=== PATIENT | female | born 1955 | race Caucasian/White ===

== ENCOUNTER 2019-08-01 10:06 | Outpatient (CLI) | payer MEDICARE, SELFPAY ==
--- NOTE | ~2019-08-01 | DEXA_ITS ---
BMD(1) Young-Adult(2) Age-Matched(3) Region (g/cm2) T-score Z-score WHO Classification L1 0.935 -1.7 0.0 Osteopenia L2 1.006 -1.7 0.0 Osteopenia L3 0.991 -1.8 -0.1 Osteopenia L4 0.983 -1.8 -0.1 Osteopenia L1-L4 0.980 -1.7 0.0 Osteopenia Trend: L1-L4 Change vs Change vs Measured Age BMD(1) Baseline Previous Date (years) (g/cm2) (%) (%) 08/01/2019 [age] 0.980 baseline - 1 - Statistically 68% of repeat scans fall within 1SD (+- 0.010 g/cm2 for AP Spine L1-L4) 2 - [place] (Combined NHANES (ages 20-30) / [employer] (ages 20-40)) AP Spine Reference Population (v112) 3 - Matched for Age, Weight (females 25-100 kg), Ethnic 11 - World Health Organization - Definition of Osteoporosis and Osteopenia for Women: Normal = T-score at or above -1.0 SD; Osteopenia = T-score between -1.0 and -2.5 SD; Osteoporosis = T-score at or below -2.5 SD; (WHO definitions only apply when a young healthy Women reference database is used to determine T-scores.) Printed: 08/01/2019 10:40:46 AM (13.60)76:3.00:50.00:12.0 0.00:9.36 0.60x1.05 19.2:%Fat=33.4% 0.00:0.00 0.00:0.00 Filename: [id number] Scan Mode: Standard;OneScan 37.0 [employer] [id number] BMD(1) Young-Adult(2,7) Age-Matched(3) Region (g/cm2) T-score Z-score WHO Classification Neck Left 0.840 -1.4 0.1 Osteopenia Right 0.799 -1.7 -0.2 Osteopenia Mean 0.819 -1.6 0.0 Osteopenia Difference 0.041 0.3 0.3 - Total Left 0.879 -1.0 0.3 Normal Right 0.790 -1.7 -0.4 Osteopenia Mean 0.834 -1.4 -0.1 Osteopenia Difference 0.089 0.7 0.7 - Hip Vest Length Comparison (mm) (Right = 95.1 mm) (Mean = 104.1 mm) (Left = 97.0 mm) Trend: Total Mean Change vs Change vs Measured Age BMD(1) Baseline Previous Date (years) (g/cm2) (%) (%) 08/01/2019 [age] 0.834 baseline - 1 - Statistically 68% of repeat scans fall within 1SD (+- 0.010 g/cm2 for DualFemur Total) 2 - [place] (Combined NHANES (ages 20-30) / [employer] (ages 20-40)) Femur Reference Population (v112) 3 - Matched for Age, Weight (females 25-100 kg), Ethnic 7 - DualFemur Total T-score difference is 0.7. Asymmetry is Mild. 11 - World Health Organization - Definition of Osteoporosis and Osteopenia for Women: Normal = T-score at or above -1.0 SD; Osteopenia = T-score between -1.0 and -2.5 SD; Osteoporosis = T-score at or below -2.5 SD; (WHO definitions only apply when a young healthy Women reference database is used to determine T-scores.) Printed: 08/01/2019 10:40:46 AM (13.60); Filename: [id number]; Right Femur; 16.6:%Fat=31.8%; Neck Angle (deg)= 65; Scan Mode: Standard 37.0 uGy; Left Femur; 16.2:%Fat=31.7%; Neck Angle (deg)= 72; Scan Mode: Standard 37.0 uGy [employer] [id number] Dear Ramila Rodriguez, Your patient Marva Jimenez completed a BMD test on 08/01/2019 using the TidalScale DXA System (analysis version: 13.60) manufactured by [employer]. The following summarizes the results of our evaluation. PATIENT BIOGRAPHICAL: Name: Marva Jimenez Date: 1955 Height: 63.0 in. Gender: Female
== END 2019-08-01 10:07 | disposition home or self-care (01) ==
LOC: CHSIMG 10:09
PROVIDERS: PCP Internal Medicine; Visit Provider Internal Medicine
DX: M81.0 Age-related osteoporosis without current pathological fracture (principal)
CPT/HCPCS: 77080

== ENCOUNTER 2019-09-18 08:52 | Outpatient (CLI) | payer MEDICARE, SELFPAY ==
[2019-09-18] MEDS: ZOLEDRONIC ACID 5 MG/100 ML 100 ML 400 MG IVPB (09:22)
--- NOTE | 2019-09-18 09:52 | PC.NURSE ---
Patient here for Reclast infusion. Instructed on medication and handout given. No concerns voiced. Reclast infusion administered. Patient tolerated well. Safe exit of hospital.
== END 2019-09-18 08:53 | disposition home or self-care (01) ==
LOC: CHSTREATRM 08:55
PROVIDERS: PCP Internal Medicine; Visit Provider Internal Medicine
DX: M81.0 Age-related osteoporosis without current pathological fracture (principal)
CPT/HCPCS: 96365; J3489

== ENCOUNTER 2020-04-01 16:18 | Outpatient (CLI) | payer MEDICARE, SELFPAY ==
--- NOTE | ~2020-04-01 | XR_ITS ---
EXAMINATION: XR lumbar spine 2-3V, XR sacroiliac joints min 3V EXAM DATE: 04/01/2020 16:39 INDICATION: Chronic low back pain. TECHNIQUE: Lumber spine frontal, lateral, lateral L5-S1 projections for interpretation. There is no prior study for comparison. FINDINGS: There is mild to moderate lumbar facet arthropathy. The vertebral bodies are aligned in th e AP dimension. Vertebral body and disc heights are well-maintained. Paraspinal soft tissue is unrema rkable. Sacrum, sacroiliac joints, sacral arcuate lines are intact. IMPRESSION: Mild to moderate lumbar facet arthropathy. Reviewed, dictated and finalized at location A. IMPRESSION: Mild to moderate lumbar facet arthropathy.
== END 2020-04-01 16:19 | disposition home or self-care (01) ==
LOC: CHSLAB 16:19
PROVIDERS: PCP Internal Medicine; Visit Provider Internal Medicine
DX: M54.5 Low back pain (principal)
CPT/HCPCS: 72100; 72202

== ENCOUNTER 2020-04-08 10:48 | Outpatient (RCR) | payer MEDICARE, SELFPAY ==
--- NOTE | 2020-04-08 11:38 | PTOPEVAL ---
Thank you for referring Marva Jimenez to [facility].? The patient is scheduled to be seen for therapy? __2__x/week for 8 visits. Please review, sign, date and return this plan of care ZOILA. I agree with and certify that the following plan of care is medically necessary. Referring Physician Date Admitting Provider: Attending Provider: Ramila Rodriguez MD Referring Provider: *PT Outpatient Evaluation Start: 04/08/20 11:02 Freq: Status: Active Protocol: Document 04/08/20 11:02 JONH (Rec: 04/08/20 11:36 JONH [email or web address]) Therapy Assessment Status Assessment Status Assessment Status Evaluation Evaluation Information Problem Diagnosis low back pain Onset 02/01/20 Subjective Information Pt. reports that she developed Query Text:As Reported By Patient/ pain a couple months ago. Family She reports that pain had worsened and she received recent xray which revealed OA. She describes all her pain on the right side at the [facility]. She reports that pain is worst in the morning and will improve with walking and moving. She states that lifting will increase her pain . She reports that she is avoiding some household lifting activities due to pain . She reports that her goal is to decrease her low back pain. Prior Level of Function Activity Level (Last 3 Months) Occupation retired Activity of Daily Living Ability Independent Indoor/Home Mobility Independent Community Mobility Independent Stairs Ability Independent Functional Cognition (Planning, Shopping Independent , Taking Medications) Cooking Yes Cleaning Yes Laundry Yes Shopping Yes Driving Yes Pain Assessment Timing of Pain Assessment Timing of Pain Assessment Pre-Treatment Pain Scale Pain Scale Used Numeric (1 - 10) Self Report Pain Assessment Right Lower Back Reported Pain Level 3 Pain Description Aching Pain Frequency Continuous Lowest Pain Intensity 3 Greatest Pain Intensity 5 Pain Score Pain Score 3: Self Report Interventions Used Interventions Used By Clinicians Electrical Sti
== END 2020-04-25 13:55 | disposition home or self-care (01) ==
LOC: CHSPT 10:48
PROVIDERS: PCP Internal Medicine; Visit Provider Internal Medicine
DX: M54.5 Low back pain (principal)
CPT/HCPCS: 97014; 97110; 97161; G0283

== ENCOUNTER 2020-04-11 11:06 | Outpatient (CLI) | payer MEDICARE, SELFPAY ==
--- NOTE | ~2020-04-11 | MM_ITS ---
EXAMINATION: MM screening avel BI w tariq HISTORY: Screening mammogram TECHNIQUE: Craniocaudal and mediolateral oblique 3-D tomosynthesis images were obtained and synthetic 2-D images were generated. CAD analysis was submitted and interpreted. COMPARISON: No prior mammogram is available for comparison at this institution. BREAST PARENCHYMAL COMPOSITION: There are scattered areas of fibroglandular density. FINDINGS: Bilateral benign calcifications are again noted. There is no evidence of suspicious mass, c alcification, or architectural distortion to suggest malignancy in either breast. There has been no s uspicious interval change. IMPRESSION: 1. No mammographic evidence of malignancy. 2. Recommend routine screening mammography in one year. BI-RADS Category 2: Benign finding(s). Reviewed, dictated and finalized at location A.
== END 2020-04-11 11:07 | disposition home or self-care (01) ==
LOC: CHSIMG 11:08
PROVIDERS: PCP Internal Medicine; Visit Provider Internal Medicine
DX: Z12.31 Encounter for screening mammogram for malignant neoplasm of breast (principal)
CPT/HCPCS: 77063; 77067

== ENCOUNTER 2020-05-08 09:13 | Outpatient (CLI) | payer MEDICARE, SELFPAY ==
[2020-05-09 14:03] LABS: SARS-CoV-2 RNA PCR Negative
== END 2020-05-08 09:14 | disposition home or self-care (01) ==
LOC: CHSLAB 09:14
PROVIDERS: PCP Internal Medicine; Visit Provider Internal Medicine
DX: Z20.828 Contact with and (suspected) exposure to other viral communicable diseases (principal)
CPT/HCPCS: 87635; C9803; U0003

== ENCOUNTER 2020-08-15 09:03 | Outpatient (CLI) | payer MEDICARE, SELFPAY ==
--- NOTE | ~2020-08-15 | US_ITS ---
EXAMINATION: US axilla LT DATE: 08/15/2020 09:32 INDICATION: Chronic left axillary and chest wall pain. TECHNIQUE: Multiple grayscale and Doppler ultrasound images of the region of concern at the left axil la were obtained. COMPARISON: None FINDINGS: There are a couple tiny 3 mm anechoic cystic lesions without internal vascular flow on color Doppler situated in the subcutaneous fat at the region of concern. No other abnormal masses or fluid collecti ons identified. IMPRESSION: 1. A couple tiny anechoic cystic lesions in the subcutaneous fat at the left axillary region of dana rn which are of doubtful clinical significance. No abnormal masses identified. Reviewed, dictated and finalized at location A. ADJUSTER IMPRESSION: 1. A couple tiny anechoic cystic lesions in the subcutaneous fat at the left ax illary region of concern which are of doubtful clinical significance. No abnorm al masses identified.
--- NOTE | ~2020-08-15 | XR_ITS ---
XR chest 2V DATE: 08/15/2020 09:52 INDICATION: Chronic left axillary and chest wall pain TECHNIQUE: PA and lateral views COMPARISON: 08/09/2014 PA and lateral chest FINDINGS: Normal heart size. No hilar or mediastinal enlargement. No pulmonary infiltrate or consolid ation, pleural effusion or pulmonary vascular congestion or pneumothorax. Included skeletal structure s are unremarkable. IMPRESSION: No active cardiopulmonary disease Reviewed, dictated and finalized at location A. 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
== END 2020-08-15 09:04 | disposition home or self-care (01) ==
LOC: CHSIMG 09:03
PROVIDERS: PCP Internal Medicine; Visit Provider Internal Medicine
DX: R07.89 Other chest pain (principal); M79.622 Pain in left upper arm
CPT/HCPCS: 71046; 76882

== ENCOUNTER 2020-08-28 12:51 | Outpatient (CLI) | payer MEDICARE, SELFPAY | END 2020-08-28 12:52 | disposition home or self-care (01) | LOC: CHSAUDIO 12:52 | PROVIDERS: PCP Internal Medicine; Visit Provider Internal Medicine | DX: H91.93 Unspecified hearing loss, bilateral (principal) | CPT/HCPCS: 92557; 92567 ==

== ENCOUNTER 2021-04-14 08:32 | Outpatient (CLI) | payer MEDICARE, SELFPAY | END 2021-04-14 08:33 | disposition home or self-care (01) | PROVIDERS: PCP Internal Medicine; Visit Provider Internal Medicine | DX: Z04.9 Encounter for examination and observation for unspecified reason (principal); Z53.8 Procedure and treatment not carried out for other reasons | CPT/HCPCS: 99199 ==

== ENCOUNTER 2021-05-14 08:17 | Outpatient (CLI) | payer MEDICARE, SELFPAY ==
--- NOTE | ~2021-05-14 | MM_ITS ---
EXAMINATION: MM screening avel BI w tariq HISTORY: Screening mammogram TECHNIQUE: Craniocaudal and mediolateral oblique 3-D tomosynthesis images were obtained and synthetic 2-D images were generated. CAD analysis was submitted and interpreted. COMPARISON: 04/11/2020, 04/10/2019, 04/08/2018, 03/24/2018 BREAST PARENCHYMAL COMPOSITION: There are scattered areas of fibroglandular density. FINDINGS: Scattered benign-appearing calcifications are present. There is no evidence of suspicious m ass, calcification, or architectural distortion to suggest malignancy in either breast. There has bee n no suspicious interval change. IMPRESSION: 1. No mammographic evidence of malignancy. 2. Recommend routine screening mammography in one year. BI-RADS Category 2: Benign finding(s). Reviewed, dictated and finalized at location A. 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
== END 2021-05-14 08:18 | disposition home or self-care (01) ==
LOC: CHSIMG 08:18
PROVIDERS: PCP Internal Medicine; Visit Provider Internal Medicine
DX: Z12.31 Encounter for screening mammogram for malignant neoplasm of breast (principal)
CPT/HCPCS: 77063; 77067

== ENCOUNTER 2021-07-08 10:31 | Outpatient (CLI) | payer MEDICARE, SELFPAY ==
[2021-07-08 11:09] LABS: SARS-CoV-2 Ag Negative (Negative)
[2021-07-08 11:10] LABS: Influenza Control Valid (Valid)
== END 2021-07-08 10:32 | disposition home or self-care (01) ==
LOC: CHSLAB 10:33
PROVIDERS: PCP Internal Medicine; Visit Provider Internal Medicine
DX: J06.9 Acute upper respiratory infection, unspecified (principal); Z20.822 Contact with and (suspected) exposure to COVID-19
CPT/HCPCS: 87081; 87426; 87804; 87880; C9803

== ENCOUNTER 2021-08-05 08:24 | Outpatient (CLI) | payer MEDICARE, SELFPAY ==
[2021-08-05 09:24] LABS: Basophils Absolute Auto 0.03 K/mm3 (0.00-0.10); Basophils Percent Auto 0.5 % (0.0-1.0); Eosinophils Absolute Auto 0.06 K/mm3 (0.02-0.50); Hemoglobin 14.1 g/dL (11.7-13.8); Immature Granulocyte Absolute 0.02 K/mm3 (0.00-0.00); Immature Granulocyte Percent A 0.3 % (0.0-0.0); Lymphocytes Absolute Auto 1.84 K/mm3 (1.10-4.50); Lymphocytes Percent Auto 29.2 % (18.0-42.0); Mean Corpuscular HGB Conc 31.3 g/dL (32.0-36.0); Mean Corpuscular Volume 92.6 fL (78.0-102.0); Mean Platelet Volume 9.3 fl (9.2-11.8); Monocytes Absolute Auto 0.44 K/mm3 (0.10-0.90); Neutrophils Absolute Auto 3.9 K/mm3 (1.7-7.2); Platelet Count Result 285 K/mm3 (150-420); Red Blood Count 4.86 M/mm3 (4.20-5.40); Red Cell Distribution Width 14.6 % (11.6-14.4); White Blood Count 6.3 K/mm3 (4.8-10.8)
[2021-08-05 09:40] LABS: Alanine Aminotransferase 27 U/L (14-59); Albumin Level 4.1 g/dL (3.4-5.0); Alkaline Phosphatase 102 U/L (46-116); Anion Gap 9 mmol/L (8-16); Aspartate Amino Transferase 19 U/L (15-37); Bilirubin,Total 0.4 mg/dL (0.00-1.00); Blood Urea Nitrogen 13 mg/dL (7-18); Calcium 9.2 mg/dL (8.5-10.1); Carbon Dioxide 29 mmol/L (21-32); Chloride 104 mmol/L (98-108); Cholesterol 222 mg/dL (0-200); Estimated Glomerular Filt Rate > 60; Glucose 94 mg/dL (70-99); HDL Direct 88 mg/dL (40-60); LDL Cholesterol Calculated 115 mg/dL (<130); Osmolality Calculated 294 mOsm/kg (285-295); Potassium 4.6 mmol/L (3.5-5.1); Sodium 142 mmol/L (136-145); Total Protein 7.6 g/dL (6.4-8.2); Triglycerides 93 mg/dL (0-150)
[2021-08-05 13:04] LABS: Appearance Urine Clear (Clear); Bilirubin Urine Negative (Negative); Color Urine Light Yellow (Yellow); Glucose Urine UA Negative (Negative); Ketones Urine Negative (Negative); Leukocyte Esterase Ur Negative LEU/UL (Negative); Nitrate Urine Positive (Negative); Protein Urine Negative (Negative); Specific Grav Ur <= 1.005 (1.010-1.020); Urobilinogen Urine 0.2 mg/dL (0.2-1.0)
[2021-08-05 13:16] LABS: Add Urine Microscopic? YES; Bacteria Urine 3+ /hpf; Blood Urine Trace-Intact (Negative); RBC Urine None seen /hpf (0-2); Squamous Epithelial Cell Urine Rare /hpf (Few); WBC Urine None seen /hpf (0-3)
[2021-08-08 14:54] LABS: Vitamin D 25 Hydroxy 45 ng/mL (30-100)
== END 2021-08-05 08:25 | disposition home or self-care (01) ==
LOC: CHSLAB 08:26
PROVIDERS: PCP Internal Medicine; Visit Provider Internal Medicine
DX: M81.0 Age-related osteoporosis without current pathological fracture (principal); I10 Essential (primary) hypertension; N39.0 Urinary tract infection, site not specified
CPT/HCPCS: 36415; 80053; 80061; 81001; 82306; 85025; 87077; 87086; 87088; 87186

== ENCOUNTER 2021-08-06 09:45 | Outpatient (CLI) | payer MEDICARE, SELFPAY ==
--- NOTE | ~2021-08-06 | DEXA_ITS ---
Bone Density Report Name: ZULEYKA MOY Age: 65 Sex: Female Ethnicity: White Date of : 1955 Indication: osteopenia; height loss; prior fracture; hysterectomy; Referring Provider: Ramila Rodriguez Study: Bone densitometry was performed. Exam Date: August 06, 2021 Accession number: [id number] Bone Density: Region BMD T-score Z-score Classification AP Spine(L1-L4) 0.780 -2.4 -0.5 Osteopenia Femoral Neck (Left) 0.652 -1.8 -0.1 Osteopenia Total Hip (Left) 0.791 -1.2 0.1 Osteopenia Femoral Neck (Right) 0.630 -2.0 -0.3 Osteopenia Total Hip (Right) 0.748 -1.6 -0.2 Osteopenia Femoral Neck Mean 0.641 -1.9 -0.2 Osteopenia Total Hip Mean 0.770 -1.4 0.0 Osteopenia World Health Organization criteria for BMD impression classify patients as: Normal (T-score at or above -1.0), Osteopenia (T-score between -1.0 and -2.5), or Osteoporosis (T-score at or below -2.5). 10-year Fracture Risk(1): Major Osteoporotic Fracture 18% Hip Fracture 2.9% Reported Risk Factors: [place] (), Neck BMD=0.630, BMI=25.4, previous fracture (1) FRAX(R) Version 3.08. Fracture probability calculated for an untreated patient. Fracture probability may be lower if the patient has received treatment. Previous Exams: Region Exam Age BMD T-score BMD Change BMD Change Date g/cm2 vs Baseline vs Previous AP Spine (L1-L4) 08/06/2021 65 0.780 -2.4 -0.082 (-9.5%) -0.082 (-9.5%) 08/01/2019 63 0.861 -1.7 Total Hip(Left) 08/06/2021 65 0.791 -1.2 -0.025 (-3.1%) -0.025 (-3.1%) 08/01/2019 63 0.816 -1.0 Total Hip(Right) 08/06/2021 65 0.748 -1.6 0.018 (2.5%)# 0.018 (2.5%)# 08/01/2019 63 0.730 -1.7 *Denotes significance at 95% confidence level, LSC for AP Spine = 0.022 g/cm2, LSC for Total Hip = 0.027 g/cm2 # Denotes dissimilar scan types or analysis methods Clinical Information Provided by Patient: Has had a low trauma fracture Has used the following medications: Actonel (i.e. risedronate), Evista (i.e. raloxifene), Fosamax (i.e. alendronate), Vitamin D Has the following medical conditions: Hysterectomy Patient maximum height was 64 Menopause Age: 43 No regular weight bearing exercise Drinks caffeinated beverages Onset of menses at age 9 Number of children 2 Impression: The patient has low bone mass, based on the Total Spine T-score. The patient has risk factors, including: previous fracture. No significant bone los
== END 2021-08-06 09:46 | disposition home or self-care (01) ==
LOC: CHSIMG 09:46
PROVIDERS: PCP Internal Medicine; Visit Provider Internal Medicine
DX: M81.0 Age-related osteoporosis without current pathological fracture (principal)
CPT/HCPCS: 77080

== ENCOUNTER 2021-11-14 15:35 | Emergency (ER) | payer MEDICARE, SELFPAY ==
--- NOTE | ~2021-11-14 | XR_ITS ---
XR shoulder LT min 2V 11/14/2021 16:59 Indication: Left shoulder pain after fall Procedure: 4 views left shoulder Comparison: 09/01/2008 Findings: There is a nondisplaced fracture of the greater tuberosity of the humerus. There is anatomi c alignment of the shoulder joint. No other fracture. Impression: 1: Nondisplaced fracture greater tuberosity of the left humerus. Reviewed, dictated and finalized at location A. Impression: 1: Nondisplaced fracture greater tuberosity of the left humerus.
--- NOTE | ~2021-11-14 | XR_ITS ---
XR ankle LT min 3V 11/14/2021 20:46 Indication: Post reduction Procedure: 4 views left ankle Comparison: Comparison to multiple prior studies sequentially, with oldest reviewed study dated 11/14. Findings: Stable alignment of displaced bimalleolar fracture with medial displacement and angulation of both the fibular and tibial fractures. There is an avulsion fracture involving the lateral process of the talus. Overall, stable alignment. Impression: 1: Stable alignment of displaced, angulated bimalleolar fracture. Reviewed, dictated and finalized at location A. Impression: 1: Stable alignment of displaced, angulated bimalleolar fracture.
--- NOTE | ~2021-11-14 | XR_ITS ---
XR ankle LT min 3V 11/14/2021 19:23 Indication: Left ankle fracture Procedure: 4 views left ankle Comparison: 11/14/2021 Findings: Stable alignment of displaced and angulated bimalleolar fracture. There is also avulsion fr acture involving the lateral process of the talus. Moderate soft tissue swelling. No other fracture. Impression: 1: Stable alignment of displaced, angulated bimalleolar fracture. Reviewed, dictated and finalized at location A. Impression: 1: Stable alignment of displaced, angulated bimalleolar fracture.
--- NOTE | ~2021-11-14 | XR_ITS ---
EXAMINATION: XR hand LT min 3V, XR wrist LT min 3V DATE: 11/14/2021 INDICATION: Left hand and wrist pain post fall TECHNIQUE: 1. Posteroanterior, ulnar deviation, oblique, and lateral views of the left wrist were obtained. 2. Dorsal palmar, oblique and lateral views of the left hand were obtained. COMPARISON: None. FINDINGS: Diffuse osteopenia. 2 mm ulnar positive variance which is likely chronic given the minimal chronic-ap pearing concavity to the proximal articular cortex at the ulnar side of the lunate suggestive of running specialist tommy ulnocarpal impaction. Alignment of the hand and wrist is otherwise normal. No acute fracture shaq ntified. Likely degenerative small corticated ossicle projecting over the dorsal aspect of the carpus . Mild polyarticular osteoarthritis at the first carpometacarpal and multiple interphalangeal joints. No focal soft tissue swelling. IMPRESSION: 1. No acute osseous abnormality. 2. Findings suggestive of chronic ulnocarpal impaction causing 2 mm ulnar positive variance and focal subtle cortical irregularity at the ulnar side of the proximal lunate. Reviewed, dictated and finalized at location B. IMPRESSION: 1. No acute osseous abnormality. 2. Findings suggestive of chronic ulnocarpal impaction causing 2 mm ulnar posit fredi variance and focal subtle cortical irregularity at the ulnar side of the pr oximal lunate.
--- NOTE | ~2021-11-14 | XR_ITS ---
EXAMINATION: XR ankle LT min 3V, XR foot LT min 3V DATE: 11/14/2021 16:59 INDICATION: Left foot and ankle pain post fall TECHNIQUE: 1. Anteroposterior, mortise, additional oblique and lateral view of the left ankle were obtained. 2. Dorsoplantar, two oblique and lateral views of the left foot were obtained. COMPARISON: None. FINDINGS: Bimalleolar fracture at the left ankle. This includes an oblique mildly comminuted fractures the dist al metaphysis of the left fibula and a transverse fracture across the medial malleolus at the level o f the tibial plafond and. The medial and lateral malleolar fragments as well as intervening talar dom e are as a relatively calyceal unit displaced approximately 1 cm medially with 20 degree medial angul ation. There is also approximately 1 cm posterior displacement of the fibular fracture suggesting lucía e degree of internal rotational displacement. No evident fracture of the posterior malleolus or talar dome. Additional tiny avulsion fracture along the lateral process of the talus likely involving the footplate of the anterior talofibular ligament. Normal alignment in the left foot with no other fract ures identified. Minimal to mild polyarticular osteoarthritis in the left mid and forefoot. Soft tiss ue swelling about the left ankle. IMPRESSION: 1. Displaced and angulated bimalleolar left ankle fracture. 2. Small avulsion fracture at the lateral process of the talus likely involving the footplate of the anterior talofibular ligament. Reviewed, dictated and finalized at location B. IMPRESSION: 1. Displaced and angulated bimalleolar left ankle fracture. 2. Small avulsion fracture at the lateral process of the talus likely involving the footplate of the anterior talofibular ligament.
[2021-11-14 15:52] VITALS: BP 107/61; PULSE 70; RESP 14; TEMP 36.6; O2SAT 100
[2021-11-14] MEDS: KETOROLAC 30 MG/ML VIAL (*BKC) IM (16:16)
[2021-11-14] MEDS: MORPHINE SULFATE (*CRX) 4 MG/ML INJ IM (17:24)
--- NOTE | 2021-11-14 17:28 | PC.NURSE ---
LEFT ANKLE HAS POSTERIOR SHORT LEG OCL IN PLACE ORDERED PER ERP, LEFT ARM IN SLING. PT TOLERATED WELL. +PMS POST APPLICATIONS.
[2021-11-14 17:29] VITALS: BP 114/72; PULSE 72; RESP 14; O2SAT 99
--- NOTE | 2021-11-14 17:57 | ED.LOWEXIN ---
HPI - Extremity Injury (Lower) General Chief Complaint: Extremity Injury, Lower Stated Complaint: LT ankle and lt shoulder injury Time Seen by Provider: 11/14/21 15:39 Source: patient, family and RN notes reviewed Mode of arrival: wheelchair Limitations: no limitations History of Present Illness complaint: ankle injury, foot injury and fall Onset (ago): hour(s) (1) Type of Injury: inversion and hyperextension Place: street/outdoors Severity: moderate Severity scale (1-10): 8 Relieving factors: immobilization and rest Exacerbating factors: movement Context: fall Associated symptoms: snap/pop sensation and swelling Related Data Home Medications Medication Instructions Recorded Confirmed loratadine 10 mg tablet (Claritin) 10 mg PO DAILY 04/08/21 11/14/21 multivitamin 1 tablet PO DAILY 04/08/21 11/14/21 rizatriptan 10 mg tablet 10 mg PO ONCE 04/08/21 11/14/21 vitamin C 50 mg-biotin 1,250 mcg 1 tablet PO DAILY 04/08/21 11/14/21 chewable tablet (Yoct-Cjiw-Ntkzf (vit C-biotin)) Allergies Allergy/AdvReac Type Severity Reaction Status Date / Time No Known Allergies Allergy Verified 11/14/21 16:05 Review of Systems Review of Systems: All systems reviewed & are unremarkable except as noted in HPI and below PMFSH Past Medical History Medical History Ankle fracture, bimalleolar, closed Arthritis Surgical History Surgical History History of hysterectomy History of tonsillectomy 1998 Family History Family History Father Lung cancer Mother Diabetes mellitus Emphysema/COPD Hypertension Social History Social History Smoking status: Never smoker Exam Const: General: healthy appearing, no acute distress and alert Nutritional Appearance: well nourished Orientation/consciousness: patient oriented x3 Limitations: no limitations HENMT: Head: normal to inspection Ears: external ears normal, TM's normal bilaterally and EAC's normal General nose exam: Normal external nose present and Normal nares present Face and sinus: normal facial exam and sinuses nontender Mouth: Yes Normal oral and palatal mucosa present, Yes lip normal and Yes moist mucous membranes Teeth and gingiva: dentition normal Throat: posterior oropharynx normal Eyes: Conjunctivae: conjunctivae normal Pupils: Equal, round and reactive pupils present EOM: EOMs intact bilaterally Neck: Neck: normal visual inspection and no lymphadenopathy Chest: Chest palpation & inspection: normal inspection of the chest Resp: Effort & Inspection: normal respiratory effort Auscultation: clear to auscultation bilaterally Cardio: Rate: regular rate Rhythm: regular rhythm GI: GI Palp: Yes Soft to palpation and No Tenderness to palpation present (GI) Auscultation: normal bowel sounds : General: Yes bladder normal to palpation and Yes no CVA tenderness Back/Spine/Pelvis: Back: no CVA tenderness Skin: General skin exam: normal color Neuro: General: patient oriented x3, moves all extremities, no meningeal signs, no focal motor deficits and CN's II-XI intact bilaterally Speech: normal speech Extrem: Other: left ankle swollen, deformed and discolored. no acute neurovascular deficit. Psych: Mental Status: mental status grossly normal Affect: normal affect Attitude: cooperative Course Course Emergency Course: Pt was stable in the ED. less painful. Pt was d/w Dr Bowser and accepted for transfer to [facility] for Ortho MD review and manx. For posterior splint after adjusting the displaced fracture. Reevaluation(s) Reevaluation #1: VSS. Date: 11/14/21 Time: 16:32 Vital Signs Vital signs: Vital Signs Temperature 36.6 C 11/14/21 15:52 Pulse Rate 70 11/14/21 15:52 Respirator
[2021-11-14 18:53] VITALS: BP 110/70; PULSE 80; RESP 16; TEMP 36.7; O2SAT 99
--- NOTE | 2021-11-14 18:54 | PC.NURSE ---
PER DR LOBATO REQUEST, OCL HAS BEEN REMOVED, ERP TO ATTEMPT TO REDUCE THE ANKLE AT THIS TIME.
[2021-11-14] MEDS: MORPHINE SULFATE (*CRX) 2 MG/ML INJ IV PUSH ×2 (19:02→20:15)
--- NOTE | 2021-11-14 19:38 | PC.NURSE ---
1899 OCL removed, and ankle manipulated per Dr Bowser's orders. 1937 New xrays sent to Dr Bowser per his request, Dr Bowser insist more manipulation to be done in ER before he will finalize acceptance
[2021-11-14 19:42] VITALS: BP 112/70; PULSE 88; RESP 20; O2SAT 98
[2021-11-14] MEDS: LORazepam INJ (*CRX) 2 MG/ML VIAL 0.5 MG IV PUSH (21:02)
[2021-11-14 21:27] VITALS: BP 102/70; PULSE 88; RESP 20; TEMP 36.6; O2SAT 98
--- NOTE | 2021-11-14 21:35 | PC.NURSE ---
[facility] no transfer crew, [facility] used
== END 2021-11-14 21:35 | disposition short-term general hospital (02) ==
PROVIDERS: Emergency Provider Emergency Medicine; PCP Internal Medicine
DX: S82.842A Displaced bimalleolar fracture of left lower leg, initial encounter for closed fracture (principal); W19.XXXA Unspecified fall, initial encounter
CPT/HCPCS: 27810; 73030; 73110; 73130; 73610; 73630; 96372; 96374; 96375; 96376; 99285; A4565; J1885; J2060; J2270

== ENCOUNTER 2021-11-14 21:53 | Observation (INO) | payer MEDICARE, SELFPAY ==
[2021-11-14] VITALS (7 sets, daily range): BP systolic 101–121; BP diastolic 57–70; PULSE 63–81; RESP 12–18; TEMP 36.4–36.8; O2SAT 96–100
--- NOTE | ~2021-11-14 | XR_ITS ---
XR ankle LT min 3V DATE: 11/14/2021 23:13 INDICATION: Postoperative reduction TECHNIQUE: Portable 4 view examination COMPARISON: None FINDINGS: Laterally displaced bimalleolar fracture and lateral dislocation at the ankle joint. IMPRESSION: Persistent lateral dislocation of the tibiotalar joint Laterally displaced bimalleolar fracture Reviewed, dictated and finalized at location A.
--- NOTE | ~2021-11-14 | XR_ITS ---
XR surgery orthopedic DATE: 11/15/2021 09:33 INDICATION: Closed reduction and splinting TECHNIQUE: 7.8 seconds fluoroscopy time 0.43 mGy 2. Portable spot C-arm images of the ankle COMPARISON: 11/14/2021 left ankle FINDINGS: There is reduction of the lateral dislocation of the tibiotalar joint. Minimal displacement at the medial and lateral malleolar fractures. Cannot exclude small posterior malleolar fracture. IMPRESSION: Reduction of lateral tibiotalar dislocation Reviewed, dictated and finalized at Location A. Reviewed, dictated and finalized at location A.
--- NOTE | ~2021-11-14 | XR_ITS ---
XR ankle LT 2V DATE: 11/14/2021 23:25 INDICATION: Bimalleolar fracture/lateral dislocation Postoperative reduction examination. TECHNIQUE: Portable 2 view examination COMPARISON: 11/14/2021 left ankle FINDINGS: There is reduction of the lateral tibiotalar dislocation. There is approximately 3 mm posterior displacement of the comminuted fracture of the lateral malleolu s. There is near-anatomic position and alignment at the medial malleolar fracture. Overlying fiberglass cast. IMPRESSION: Reduction of lateral tibiotalar dislocation Near-anatomic position and alignment at the medial malleolar fracture and minimal posterior displacem ent at the lateral malleolar comminuted fracture Reviewed, dictated and finalized at location A. IMPRESSION: Reduction of lateral tibiotalar dislocation Near-anatomic position and alignment at the medial malleolar fracture and minim al posterior displacement at the lateral malleolar comminuted fracture
[2021-11-14] MEDS: MORPHINE SULFATE (*CRX) 4 MG/ML INJ IV PUSH (22:36)
[2021-11-14] MEDS: SODIUM CHLORIDE 0.9% IV 1,000 ML 999 ML IV CONT (22:53)
--- NOTE | 2021-11-14 23:30 | PC.NURSE ---
40 mg of Propofol administered at [address] Talavera. Pt tolerated the procedure well. Time-out performed pre-procedure, Dr. Talavera in attendance. Procedure confirmed by X-ray.
--- NOTE | 2021-11-14 23:33 | ED.LOWEXIN ---
HPI - Extremity Injury (Lower) General Chief Complaint: Extremity Injury, Lower Stated Complaint: ANKLE INJURY Time Seen by Provider: 11/14/21 21:55 History of Present Illness HPI Narrative: Patient is a 66-year-old female who presents the ER with an ankle fracture. Patient tripped and fell while walking. Suffered bimalleolar ankle fracture with dislocation of the talus in respect to the tibia. Patient was seen in [place] ER but could not get adequate reduction. Transferred to this ER and accepted for admission by [facility]. Patient has no new numbness or tingling. Patient is in a splint from the outside emergency room. She did not strike her head or lose consciousness. She was additionally diagnosed with a left humeral tuberosity fracture. She has a sling in place. Related Data Home Medications Medication Instructions Recorded Confirmed loratadine 10 mg tablet (Claritin) 10 mg PO DAILY 04/08/21 11/14/21 multivitamin 1 tablet PO DAILY 04/08/21 11/14/21 rizatriptan 10 mg tablet 10 mg PO ONCE 04/08/21 11/14/21 vitamin C 50 mg-biotin 1,250 mcg 1 tablet PO DAILY 04/08/21 11/14/21 chewable tablet (Kaoe-Bbet-Iornv (vit C-biotin)) Allergies Allergy/AdvReac Type Severity Reaction Status Date / Time No Known Allergies Allergy Verified 11/14/21 16:05 Review of Systems Review of Systems: All systems reviewed & are unremarkable except as noted in HPI and below Constitutional: Constitutional: Denies chills, Denies fatigue and Denies fever(s) Cardiovascular: Cardiovascular: Denies chest pain Respiratory: Respiratory: Denies cough and Denies dyspnea Gastrointestinal: Gastrointestinal: Denies abdominal pain, Denies nausea and Denies vomiting Musculoskeletal: Musculoskeletal: Reports arthralgias and Reports joint swelling Neurologic: Denies syncope, Denies headache(s), Denies focal weakness and Denies numbness [facility] Past Medical History Medical History Ankle fracture, bimalleolar, closed Arthritis Surgical History Surgical History History of hysterectomy History of tonsillectomy 1998 Family History Family History Father Lung cancer Mother Diabetes mellitus Emphysema/COPD Hypertension Social History Social History Smoking status: Never smoker Exam Narrative: GENERAL: Well-appearing, well-nourished, and in no acute distress. HEAD: Normocephalic, atraumatic. EYES: PERRL and EOMI. ENT: Mucous membranes moist. CHEST: Clear to auscultation. No respiratory distress. HEART: Regular rate and rhythm. Normal peripheral pulses. ABDOMEN: Soft, nontender, nondistended. EXTREMITIES: Swelling and tenderness left ankle with limited range of motion due to fracture and deformity. There is bruising over the medial malleolus due to skin tenting. No open fracture. SKIN: Warm, dry, no rash. NEURO: No focal deficits. Alert and oriented x3. PSYCH: Normal mood and affect. Course Vital Signs Vital signs: Vital Signs Temperature 97.6 F 11/14/21 21:55 Pulse Rate 81 11/14/21 21:55 Respiratory Rate 18 11/14/21 21:55 Blood Pressure 121/64 11/14/21 21:55 Pulse Oximetry 97 11/14/21 21:55 Oxygen Delivery Room Air 11/14/21 21:55 Temperature 98.1 F 11/14/21 23:36 Pulse Rate 70 11/14/21 23:36 Respiratory Rate 12 11/14/21 23:36 Blood Pressure 107/70 11/14/21 23:36 Pulse Oximetry 96 11/14/21 23:36 Oxygen Delivery Room Air 11/14/21 23:36 Oxygen Flow Rate 2 11/14/21 23:21 Procedures Orthopedic Fracture Reduction Fracture #1: Fracture Reduction date: 11/14/21 Fracture Reduction time: 23:10 Time Out Performed: Yes Side: left Fracture Reduction Location: tibia and fibula Analgesia: procedura
[2021-11-14 23:46] LABS: Basophils Percent Auto 0.1 % (0.2-1.2); Eosinophils Percent Auto 0.2 % (0-4.4); Hematocrit 33.8 % (37.0-47.0); Hemoglobin 10.7 g/dL (12.0-15.0); Immature Granulocyte Absolute 0.03 K/mm3 (0.00-0.031); Immature Granulocyte Percent A 0.3 % (0-0.5); Lymphocytes Absolute Auto 1.03 K/mm3 (0.9-3.2); Lymphocytes Percent Auto 11.5 % (18.3-44.2); Mean Corpuscular HGB Conc 31.7 g/dl (32-36); Mean Corpuscular Hemoglobin 28.5 pg (26-34); Mean Corpuscular Volume 89.9 fl (80-100); Mean Platelet Volume 9.4 fl (7.4-10.4); Monocytes Absolute Auto 0.6 K/mm3 (0.1-0.6); Monocytes Percent Auto 6.2 % (2.6-8.5); Neutrophils Absolute Auto 7.3 K/mm3 (1.3-6.7); Neutrophils Percent Auto 81.7 % (45.5-73.1); Platelet Count Result 231 k/mm3 (150-375); Red Blood Count 3.76 M/mm3 (4.2-5.4); Red Cell Distribution Width 14.7 % (11.5-14.5)
[2021-11-14 23:52] LABS: Anion Gap 5 mmol/L (8-16); Blood Urea Nitrogen 17 mg/dL (7-17); Calcium 8.1 mg/dL (8.4-10.2); Carbon Dioxide 22 mmol/L (22-30); Chloride 106 mmol/L (98-107); Estimated CRCL calculation 34 ml/min; Estimated Glomerular Filt Rate 49; Glucose 135 mg/dL (65-110); Potassium 4.3 mmol/L (3.4-5.0); Sodium 133 mmol/L (137-145)
[2021-11-14 23:55] LABS: INR 1.3
[2021-11-15] VITALS (11 sets, daily range): BP systolic 106–130; BP diastolic 59–77; PULSE 69–88; RESP 12–18; TEMP 35.6–36.7; O2SAT 96–100
--- NOTE | 2021-11-15 00:40 | ADMGEN ---
This patient, Marva Jimenez, was admitted to Medical Room 255-01. Patient/family oriented to hospital policies and general routines including ID bracelet, bed and alarms, visiting hours, pain management, procedures, bathroom and other care routines, personal items, smoking policy, room service/diet, and visiting hours. Information on how to activate the Rapid Response Team has been discussed. Patient/Family are encouraged to report perceived risks to care and to ask questions if they do not understand what they are told or what they should do.
--- NOTE | 2021-11-15 07:32 | PM.IMHP ---
H&P: HPI History of Present Illness Date/Time: 11/15/21 07:32 Chief Complaint: 1. Left ankle injury 2. Left shoulder injury Narrative: 58-year-old female lives in [place]. She fell yesterday while walking suffering a left bimalleolar ankle fracture. She also injured her left shoulder. Reduction was attempted at the [place] in the emergency room however post reduction x-rays showed worsening of the deformity. After 2 times of this I requested the patient be transferred to the [facility] for an appropriate reduction and stabilization attempt. This was accomplished. Once this was done, patient noted that she felt much better. She does have some soreness in her left shoulder. Initially she was unable to lift it but she can today . She was told in [place] in that there was no fracture however she does have a nondisplaced greater tuberosity fracture. No other bony injuries. Review of Systems Review of Systems: All systems reviewed & are unremarkable except as noted in HPI and below Constitutional: Constitutional: Reports as per HPI Eyes: Eyes: Reports no additional eye complaints ENT: Reports system reviewed and no additional complaints, except as documented Cardiovascular: Cardiovascular: Denies chest pain and Denies dyspnea on exertion Respiratory: Respiratory: Reports no additional respiratory complaints and Denies dyspnea on exertion Gastrointestinal: Gastrointestinal: Denies abdominal pain and Denies bloating Comments: History of bleeding hemorrhoids PMF Past Medical History Medical History (Updated 11/15/21 @ 07:46 by Ammon Bowser MD) Ankle fracture, bimalleolar, closed Arthritis Surgical History Surgical History (Updated 11/15/21 @ 07:41 by Ammon Bowser MD) History of hysterectomy History of tonsillectomy 1999 Internal hemorrhoids without complication some type of stapling procedure Family History Family History Father Lung cancer Mother Diabetes mellitus Emphysema/COPD Hypertension Social History Social History Smoking status: Never smoker Alcohol intake: unknown Substance use: never Substance use type: does not use Spiritual care concerns: No Meds Home Medications and Allergies Home Medications Medication Instructions Recorded Confirmed Type loratadine 10 mg tablet (Claritin) 10 mg PO DAILY 04/08/21 11/15/21 History multivitamin 1 tablet PO DAILY 04/08/21 11/15/21 History rizatriptan 10 mg tablet 10 mg PO PRN PRN Migraine Headache 04/08/21 11/15/21 History sulfamethoxazole 800 1 tablet PO BID 11/15/21 11/15/21 History mg-trimethoprim 160 mg tablet vitamin C 50 mg-biotin 1,250 mcg 1 tablet PO DAILY 11/15/21 11/15/21 History chewable tablet (Oehi-Gvgl-Nyfgy (vit C-biotin)) Allergies Allergy/AdvReac Type Severity Reaction Status Date / Time No Known Allergies Allergy Verified 11/15/21 00:53 Vital Signs Vital Signs - 24 hr 11/14/21 21:55 11/14/21 23:06 11/14/21 23:11 Temperature 97.6 F 97.9 F 97.8 F Pulse Rate 81 Pulse Rate [Monitor] 70 63 Respiratory Rate 18 12 13 Blood Pressure 121/64 Blood Pressure [Right Arm] 117/68 112/57 L Pulse Oximetry 97 99 98 Oxygen Delivery Room Air Nasal Cannula Nasal Cannula Oxygen Flow Rate 2 2 11/14/21 23:21 11/14/21 23:36 11/14/21 23:16 Temperature 98 F 98.1 F 97.6 F Pulse Rate Pulse Rate [Monitor] 68 70 67 Respiratory Rate 12 12 12 Blood Pressure Blood Pressure [Right Arm] 101/61 107/70 102/59 L Pulse Oximetry 98 96 98 Oxygen Delivery Nasal Cannula Room Air Nasal Cannula Oxygen Flow Rate 2 2 11/14/21 23:51 11/15/21 00:46 11/15/21 01:15 Temperature 98.2 F Pulse Rate 73 Pulse Rate [Monitor] 72 Respiratory Rate 12 12 Blood Pressure 107/70 Blood Pressure [Right Arm] 111/64 Pulse Oximetry 100 96 Oxygen Delive
--- NOTE | 2021-11-15 08:01 | WPDANESEPPF ---
Anes - Initial Pre Proc Eval Procedure: Operation Date: 11/15/21 08:00 Proposed Procedures p Closed Reduction Any Ortho - Ammon Bowser MD s Closed Reduction Left Ankle Possible ORIF Left Ankle Fracture - Ammon Bowser MD Date/Time: 11/15/21 08:01 Surgeon: Ammon Bowser MD Pre Op Diagnosis: ankle fracture Patient Data Age: 66 Gender: F Height: 1.57 m Weight: 63.05 kg Last Vital Signs Temp 36.6 C 11/15/21 06:06 Pulse 75 11/15/21 06:06 Resp 16 11/15/21 06:06 BP 122/69 11/15/21 06:06 Pulse Ox 100 11/15/21 06:06 O2 Del Method Room Air 11/15/21 01:15 O2 Flow Rate 2 11/14/21 23:21 Allergies Allergy/AdvReac Type Severity Reaction Status Date / Time No Known Allergies Allergy Verified 11/15/21 00:53 Home Medications Medication Instructions Recorded Confirmed Type loratadine 10 mg tablet (Claritin) 10 mg PO DAILY 04/08/21 11/15/21 History multivitamin 1 tablet PO DAILY 04/08/21 11/15/21 History rizatriptan 10 mg tablet 10 mg PO PRN PRN Migraine Headache 04/08/21 11/15/21 History sulfamethoxazole 800 1 tablet PO BID 11/15/21 11/15/21 History mg-trimethoprim 160 mg tablet vitamin C 50 mg-biotin 1,250 mcg 1 tablet PO DAILY 11/15/21 11/15/21 History chewable tablet (Euuz-Jgsm-Qsfhm (vit C-biotin)) Laboratory Tests 11/14/21 11/14/21 11/14/21 23:35 23:35 23:35 WBC 9.0 K/mm3 K/mm3 (4.5-10.0) RBC 3.76 M/mm3 L M/mm3 (4.2-5.4) Hgb 10.7 g/dL L g/dL (12.0-15.0) Hct 33.8 % L % (37.0-47.0) MCV 89.9 fl fl (80-100) MCH 28.5 pg pg (26-34) MCHC 31.7 g/dl L g/dl (32-36) RDW 14.7 % H % (11.5-14.5) Plt Count 231 k/mm3 k/mm3 (150-375) MPV 9.4 fl fl (7.4-10.4) Immature Gran % (Auto) 0.3 % % (0-0.5) Neut % (Auto) 81.7 % H % (45.5-73.1) Lymph % (Auto) 11.5 % L % (18.3-44.2) [place] % (Auto) 6.2 % % (2.6-8.5) Eos % (Auto) 0.2 % % (0-4.4) Baso % (Auto) 0.1 % L % (0.2-1.2) Lymph # (Auto) 1.03 K/mm3 K/mm3 (0.9-3.2) [place] # (Auto) 0.6 K/mm3 K/mm3 (0.1-0.6) Eos # (Auto) 0.0 K/mm3 K/mm3 (0-0.3) Baso # (Auto) 0.0 K/mm3 K/mm3 (0.0-0.1) Abs Immat Gran (auto) 0.03 K/mm3 K/mm3 (0.00-0.031) Absolute Neuts (auto) 7.3 K/mm3 H K/mm3 (1.3-6.7) Absolute Nucleated RBC 0.0 K/mm3 K/mm3 (0.0-0.012) Nucleated RBC % 0.0 % % (0.0-0.2) PT 16.0 Seconds H Seconds (11.1-14.7) INR 1.3 APTT 28.0 SECONDS SECONDS (22.3-36.8) Sodium 133 mmol/L L mmol/L (137-145) Potassium 4.3 mmol/L mmol/L (3.4-5.0) Chloride 106 mmol/L mmol/L (98-107) Carbon Dioxide 22 mmol/L mmol/L (22-30) Anion Gap 5 mmol/L L mmol/L (8-16) BUN 17 mg/dL mg/dL (7-17) Creatinine 1.10 mg/dL H mg/dL (0.7-1.0) Estim Creat Clear Calc 34 ml/min ml/min Estimated GFR 49 L (59 - ) Glucose 135 mg/dL H mg/dL (65-110) Calcium 8.1 mg/dL L mg/dL (8.4-10.2) Patient hx anesthesia problems: none Family hx anesthesia problems: none Results Review: All pre-operative results and documents have been reviewed as part of the pre-operative evaluation. [facility] Past Medical History Medical History (Updated 11/15/21 @ 07:46 by Ammon Bowser MD) Ankle fracture, bimalleolar, closed Arthritis Surgical History Surgical History (Updated 11/15/21 @ 07:41 by Ammon Bowser MD) History of hysterectomy History of tonsillectomy 1998 Internal hemorrhoids without complication some type of stapling procedure Family History Family History Father Lung cancer Mother Diabetes mellitus Emphysema/COPD Hypertension Social History So
[2021-11-15] MEDS: LACTATED RINGERS 1,000 ML 30 ML IV CONT (08:30)
--- NOTE | 2021-11-15 08:37 | PC.NURSE ---
Pt down to post op via hospital bed at 0830.
--- NOTE | 2021-11-15 09:13 | W.PM.PROC2 ---
Procedure Note - Detailed Date of Procedure 11/15/21 Pre-op Diagnosis Left bimalleolar ankle fracture Post-op Diagnosis Other (Left trimalleolar ankle fracture) Procedure Performed Reduction and splinting left ankle fracture Surgeon Ammon Bowser MD Maintenance Helper Asim Anesthesia General Description of Procedure The patient was identified and proper site identified. She was taken to the operating room and transferred to the OR table placing her supine taking care to pad her torso and extremities. After general anesthetic induction and intubation, the splint was removed from the patient's left lower extremity. The medial skin was dusky right at the fracture site in addition to there being marked circumferential swelling about the ankle. The ankle was examined and the fracture although not anatomically reduced particularly medially was quite stable so the decision was made to reapply well-padded splint to give the tissues a chance to recover so that this could be addressed at a later date. An exceptionally well-padded stirrup type ankle splint was applied while holding the ankle in a reduced position. The this was verified fluoroscopically. Was also noted the final fluoroscopic images at there is a small shell of bone posteriorly on the distal tibia making this a trimalleolar fracture. There was no blood loss and no antibiotics were given. She was awakened, extubated and taken back to recovery area in stable condition. Estimated Blood Loss 0 Urine Output 0 Complications None Disposition PACU
--- NOTE | 2021-11-15 09:44 | PC.NURSE ---
Pt returned to floor via hospital bed from postop at 0945.
[2021-11-15] MEDS: HYDROcodone/acetaminophen (*CRX) 5-325 MG TABLET 1 TAB PO ×2 (12:05→17:57)
[2021-11-15] MEDS: ASPIRIN 81 MG ENTERIC TABLET PO (12:06)
[2021-11-15] MEDS: SODIUM CHLORIDE 0.9% IV 1,000 ML 125 ML IV CONT (15:50)
[2021-11-15] MEDS: SENNA/DOCUSATE SODIUM TABLET 2 TAB PO (18:16)
[2021-11-16 00:46] VITALS: BP 120/68; PULSE 77; RESP 16; TEMP 36.6; O2SAT 97
[2021-11-16 04:52] VITALS: BP 114/67; PULSE 75; RESP 16; TEMP 36.4; O2SAT 96
[2021-11-16] MEDS: HYDROcodone/acetaminophen (*CRX) 5-325 MG TABLET 1 TAB PO (06:44)
[2021-11-16] MEDS: RIZATRIPTAN BENZOATE 10 MG TABLET PO (06:45)
--- NOTE | 2021-11-16 07:48 | PM.DS ---
DS: Admitting Diagnosis Discharge Date November 16, 2021 Admitting Diagnosis 1. left trimalleolar ankle fracture 2. Left humerus greater tuberosity fracture DS: Discharge Diagnosis Discharge Diagnosis (1) Nondisplaced fracture of greater tuberosity of left humerus: Code(s): S42.255A - Nondisplaced fracture of greater tuberosity of left humerus, initial encounter for closed fracture Status: Acute (2) Ankle fracture, bimalleolar, closed: Code(s): S82.843A - Displaced bimalleolar fracture of unspecified lower leg, initial encounter for closed fracture Status: Acute Plan Patient will be discharged home today. On Wednesday she is to call for an appointment to be seen in my office on November 20, 2021. Instructions were reviewed with her in detail. These are also printed. DS: Summary Hospital Course Reason for hospitalization: Fracture management. Hospital Course: Following the patient's admission on Wednesday night/ Wednesday morning she was taken to the operating room. Because of the trauma during reduction attempts at outside hospital, skin was judged to be compromised over the medial malleolar fracture. She was resplinted. Therapy worked with her on Wednesday. She is going to be discharged home today. Status at Discharge Cognitive/behavioral status at discharge: Normal baseline Functional status at discharge: wheelchair bound Time Spent with Patient Time attestation: Total time spent providing and/or coordinating discharge services: Exam Const: General: alert and awake; No acute distress Orientation/consciousness: patient oriented x3 Resp: Effort & Inspection: normal respiratory effort and able to speak in complete sentences GI: Inspection: non-distended Neuro: General: patient oriented x3 and moves all extremities Extrem: Other: Exam of left shoulder shows reasonable movement. Tender over greater tuberosity. Left lower extremity splint in place. Neurovascular status intact to toes. Calves negative. Psych: Appearance: grossly normal Mental Status: mental status grossly normal Discharge Plan Discharge Attending physician on discharge: Ammon Bowser Discharging Clinician: Ammon Bowser Anticipated Discharge Date/Time: 11/16/21 11:00 Patient Disposition: Home, Self-Care Activity: follow weight bearing status and other - see discharge instructions Diet: as tolerated Discharge Instructions: Please call [facility] at as soon as possible to arrange forfollow-up appointment to be seen on November 20 at my office for x-ray of the left ankle and left shoulder. Also, call the office with any orthopedic/surgical related questions prior to follow-up. You're to be strictly nonweightbearing with respect to the left lower extremity. Because of the humerus fracture he will not be able to use the left arm for a walker. You will need to be using a wheelchair. You can pivot on your right leg with your assisting you in lifting you up. I would like for you to use enteric-coated aspirin 81 milligrams one tablet a day for the next eight weeks for prevention of blood clots. Keep the dressing on your left leg clean and dry. Do not remove it under any circumstance. Take arthritis formula Tylenol 650 milligram tablet one every 8 hours on a schedule. A good schedule would be 6:00 a.m., 2:00 p.m., 10:00 p.m.. You may supplement this with the prescribed pain medication following the instructions on that prescription. Patient Instructions: Antibiotic Form Stand Alone Forms: General Discharge Information Follow-up/Referrals: Ammon Bowser MD [Physician] - Call for Appointment (Needs to be seen on November 20, 2021) Discharge Medications: New tramadol 50 mg tablet 50 mg PO Q6H PRN (Reason: pain) Qty: 30 0RF Continued rizatriptan 10 mg tablet 10 mg PO PRN PRN (Reason: Migraine Headache) Rx Instructions: may repeat once after
[2021-11-16 08:00] VITALS: PULSE 75; RESP 16; O2SAT 96
[2021-11-16] MEDS: SENNA/DOCUSATE SODIUM TABLET 2 TAB PO (08:46)
[2021-11-16] MEDS: ASPIRIN 81 MG ENTERIC TABLET PO (08:46)
[2021-11-16] MEDS: LORATADINE 10 MG TABLET PO (08:47)
[2021-11-16] MEDS: polyethylene glycoL 3350 17 GM POWD.PACK PO (08:47)
[2021-11-16] MEDS: MULTIVITAMINS THERAPEUTIC TAB (*BKC) 1 TABLET PO (08:47)
--- NOTE | 2021-11-16 09:04 | PC.NURSE ---
IV removed, discharge paperwork explained to pt, question and concerns answered, all personal belongings packed up and given to pt prior to discharging, pt awaiting ride home from .
== END 2021-11-16 10:30 | disposition home or self-care (01) ==
LOC: ANHED 23:42 → ANH2MED 11-15 00:20
PROVIDERS: Admitting Provider Orthopaedic Surgery; Emergency Provider Emergency Medicine; PCP Internal Medicine; Visit Provider Orthopaedic Surgery
PROC: (CPT 27818; principal; 2021-11-15 08:00)
DX: S82.852A Displaced trimalleolar fracture of left lower leg, initial encounter for closed fracture (principal); S42.255A Nondisplaced fracture of greater tuberosity of left humerus, initial encounter for closed fracture; W18.30XA Fall on same level, unspecified, initial encounter
CPT/HCPCS: 27818; 27810; 36415; 73600; 73610; 80048; 85025; 85610; 85730; 96361; 96365; 96374; 96375; 97110; 97161; 97530; 99285; A9270; G0378; J0131; J2250; J2270; J2405; J2704; J3010; J7030; J7120

== ENCOUNTER 2021-11-24 01:10 | Day surgery (SDC) | payer MEDICARE, SELFPAY ==
[2021-11-19 10:16] VITALS: BMI 25.4
--- NOTE | 2021-11-19 10:42 | PC.NURSE ---
Report to the Outpatient Waiting Room, entrance under the green pavilion located off [facility], at time __11:00AM on date __11/25/21 . OR Time: _1:30PM . - You and your visitor will be asked a series of questions to screen for COVID 19 for your protection. - Only one visitor is allowed at this time. - The patient visitor is requested to leave or wait in car when not with patient. - A mask is required within the hospital. Patients may have clear liquids (water, carbonated beverages, clear teas, apple juice) until 3 hours prior to surgery with a maximum of 20 ounces. - No food from midnight until time of surgery - Infants may have breast milk until 4 hours before surgery, formula 6 hours prior to surgery. - Children will be allowed to drink immediately following surgery. If applicable, please bring a bottle or sippy cup to assist with drinking. Juice, water, soda, and popsicles are readily available. For infants on formula, please bring formula the day of surgery. Pacifiers are allowed. Take the following medications with a SIP of water the morning of surgery: __RIZATRIPTAN NEEDED, TRAMADOL NEEDED Medications to discontinue per physician HOLD ALL VITAMINS/SUPPLEMENTS 3 DAYS PRE-OP Date to take last dose___11/21/21 Please no make-up, nail filipino, hairspray, perfume, deodorant, or body powder the day of surgery. No jewelry (including any body piercings) or valuables the day of surgery, leave them at home. Please take a shower or bath the night before, or the morning of, surgery with an antibacterial soap. Wear comfortable, loose fitting clothing. Children are encouraged to wear pajamas. - Jewelry must be removed prior to entering the operating room. Rings and piercings that are not removed may be cut off. - The hospital will not accept responsibility for valuables. - Please leave all valuables, including medications, at home the day of surgery. If you are going home after surgery, a licensed helper driver must drive you home. - NO public transportation without another adult. - We recommend that an adult stay with you for 24 hours following discharge. - We also recommend that you do not drive, make important decision, drink alcoholic beverages, or take any drugs that were not prescribed by your health care provider for at least 24 hours after your discharge time. For Pediatric surgeries, we recommend two adults accompany the child home (only one inside the building at this time). Follow any additional instructions given to you from your surgeon. If you or anyone in your household have experienced Covid symptoms in the past week, please notify your surgeon or the nurse liaison at the phone number below for possible testing. Telephone instructions given to __PATIENT and asked if any additional questions and then verbalized understanding. Patient advised to call surgeon office or pre surgery nurse liaison [phone] if any additional questions.
--- NOTE | 2021-11-20 12:50 | PC.NURSE ---
Report to the Outpatient Waiting Room, entrance under the green pavilion located off [facility], at time __1030 on date _11/24/21 . OR Time: ___1230 . - You and your visitor will be asked a series of questions to screen for COVID 19 for your protection. - Only one visitor is allowed at this time. - The patient visitor is requested to leave or wait in car when not with patient. - A mask is required within the hospital. Patients may have clear liquids (water, carbonated beverages, clear teas, apple juice) until 3 hours prior to surgery (0930 AM) with a maximum of 20 ounces. - No food from midnight until time of surgery - Infants may have breast milk until 4 hours before surgery, infant formula 6 hours prior to surgery. - Children will be allowed to drink immediately following surgery. If applicable, please bring a bottle or sippy cup to assist with drinking. Juice, water, soda, and popsicles are readily available. For infants on formula, please bring formula the day of surgery. Pacifiers are allowed. Take the following medications with a SIP of water the morning of surgery: _RIZATRIPTAN, TRAMADOL IF NEEDED_ Medications to discontinue per ANESTHESIA - VITAMINS/SUPPLEMENTS 3 DAYS PRIOR TO SURGERY, Date to take last dose 11/20/21_ Please no make-up, nail kazakh, hairspray, perfume, deodorant, or body powder the day of surgery. No jewelry (including any body piercings) or valuables the day of surgery, leave them at home. Please take a shower or bath the night before, or the morning of, surgery with an antibacterial soap. Wear comfortable, loose fitting clothing. Children are encouraged to wear pajamas. - Jewelry must be removed prior to entering the operating room. Rings and piercings that are not removed may be cut off. - The hospital will not accept responsibility for valuables. - Please leave all valuables, including medications, at home the day of surgery. If you are going home after surgery, a licensed tow car driver must drive you home. - NO public transportation without another adult. - We recommend that an adult stay with you for 24 hours following discharge. - We also recommend that you do not drive, make important decision, drink alcoholic beverages, or take any drugs that were not prescribed by your health care provider for at least 24 hours after your discharge time. For Pediatric surgeries, we recommend two adults accompany the child home (only one inside the building at this time). Follow any additional instructions given to you from your surgeon. If you or anyone in your household have experienced Covid symptoms in the past week, please notify your surgeon or the nurse liaison at the phone number below for possible testing. Telephone instructions given to ___PT and asked if any additional questions and then verbalized understanding. Patient advised to call surgeon office or pre surgery nurse liaison [phone] if any additional questions.
[2021-11-24] VITALS (10 sets, daily range): BP systolic 113–141; BP diastolic 68–86; PULSE 71–89; RESP 13–16; TEMP 36.5–36.8; O2SAT 97–100
--- NOTE | ~2021-11-24 | XR_ITS ---
XR surgery orthopedic DATE: 11/24/2021 09:53 INDICATION: ORIF left ankle TECHNIQUE: 2 C-arm spot radiographs of the right ankle 23.9 seconds fluoroscopy time 1.21 mGy COMPARISON: 11/15/2021 right ankle FINDINGS: 2 compression screws extend through the medial malleolus into the distal tibial diametaphys is, providing near-anatomic position and alignment at the medial malleolar fracture. Mildly laterally displaced lateral malleolar fracture. Cannot exclude small posterior malleolar fract ure. Minimal lateral subluxation and widening of the tibiotalar joint IMPRESSION: ORIF medial malleolar fracture Reviewed, dictated and finalized at [facility]. Reviewed, dictated and finalized at location [facility].
[2021-11-24] MEDS: ACETAMINOPHEN 500 MG TABLET 1000 MG PO (08:29)
--- NOTE | 2021-11-24 08:30 | P.PNAN_ITS ---
Anes - Initial Pre Proc Eval Procedure: Operation Date: 11/24/21 12:30 Proposed Procedures p Open Reduction Internal Fixation Left Ankle - Ammon Bowser MD Date/Time: 11/24/21 08:30 Surgeon: Ammon Bowser MD Pre Op Diagnosis: left trimalleolar fx Patient Data Age: 66 Gender: F Height: 1.57 m Weight: 61 kg Allergies Allergy/AdvReac Type Severity Reaction Status Date / Time No Known Allergies Allergy Verified 11/24/21 08:17 Home Medications Medication Instructions Recorded Confirmed Type loratadine 10 mg tablet (Claritin) 10 mg PO DAILY 04/08/21 11/20/21 History multivitamin 1 tablet PO DAILY 04/08/21 11/20/21 History rizatriptan 10 mg tablet 10 mg PO PRN PRN Migraine Headache 04/08/21 11/20/21 History sulfamethoxazole 800 1 tablet PO BID 11/15/21 11/20/21 History mg-trimethoprim 160 mg tablet vitamin C 50 mg-biotin 1,250 mcg 1 tablet PO DAILY 11/15/21 11/20/21 History chewable tablet (Sxcm-Efep-Aawcd (vit C-biotin)) tramadol 50 mg tablet 50 mg PO Q6H PRN pain #30 tabs 11/16/21 11/20/21 Rx acetaminophen 650 mg 650 mg PO TID 11/19/21 11/20/21 History tablet,extended release aspirin 81 mg capsule 81 mg PO DAILY 11/19/21 11/20/21 History cholecalciferol (vitamin D3) 50 50 mcg PO DAILY 11/19/21 11/20/21 History mcg (2,000 unit) capsule Patient hx anesthesia problems: none Family hx anesthesia problems: none Results Review: All pre-operative results and documents have been reviewed as part of the pre- operative evaluation. [facility] [place] Past Medical History Medical History Ankle fracture, bimalleolar, closed Arthritis Headache Surgical History Surgical History History of hysterectomy History of tonsillectomy 1999 Internal hemorrhoids without complication some type of stapling procedure Family History Family History Father Lung cancer Mother Diabetes mellitus Emphysema/COPD Hypertension Depression Social History Social History Smoking status: Never smoker Alcohol intake: unknown Substance use: never Substance use type: does not use Living arrangements: with family Additional living arrangements comments: HUSB Spiritual care concerns: No Anes - Eval Final PreProcedure Day of Procedure 11/24/21 08:30 Patient weight: normal Heart: regular rate and rhythm Lungs: clear to auscultation Airway: Mallampati scale class II Neurological: alert and oriented Last oral intake: >/= 8 hours ASA classification: II Emergent: no Anesthetic plan: proceed Anesthesia type and monitoring: general LMA and standard monitoring Results Review: All pre-operative results and documents have been reviewed as part of the pre-operative evaluation. Informed Consent: The patient's anesthetic plan and its attendant risks and benefits were discussed with the patient/family/POA. Questions were solicited and answers provided to the satisfaction of the patient/family/POA.
--- NOTE | 2021-11-24 08:36 | WPDHPUPDATE1 ---
History and Physical Update Update Date/Time: 11/24/21 08:36 History and Physical has been reviewed, including an updated exam of the patient. There are NO changes in the patient's condition. Risks, benefits, and alternatives have been discussed and questions answered. Patient agrees to proceed with procedure.
[2021-11-24] MEDS: LACTATED RINGERS 1,000 ML 30 ML IV CONT (08:43)
[2021-11-24] MEDS: KETOROLAC 15 MG/ML VIAL (*BKC) IV PUSH (08:44)
--- NOTE | 2021-11-24 08:53 | WPDANESPNB ---
Anes - Peripheral Nerve Block Date/Time: 11/24/21 08:53 I have discussed with the patient/family/POA the placement of a peripheral nerve block for post-operative pain management, including associated risks, benefits, complications, and side effects. Alternative methods of post-operative analgesia were detailed. Questions were solicited and answers provided to the satisfaction of the patient/family/POA. Time-Out: A pre-procedural Time-Out was completed immediately before starting the procedure and confirmed: Patient Identification, Site, Procedure, Patient Position and the Availability of Requisite Equipment. Clinical Indications: Acute post-operative pain management requested by the operative surgeon. Nerve Block Insertion Note Anes-nerve block: posterior fossa sciatic left and other (Saphenous left) Patient position: supine Skin prep: chlorhexidine Needle: 22 gauge, stimulating, insulated echogenic needle. Needle length: 80 mm Technique: nerve stimulation lost at (mA) (0.3) Technique comment: mid2mg [id number] Injectate: bupivacaine 0.5% with epi 5 mcg/ml (20/10ml no epi) and dexamethasone (mg) (4) Observations: tolerated well Complications: none Procedure start time:: 847 Procedure end time:: 852
[2021-11-24] MEDS: ceFAZolin 2 GM/D5W 50 ML 2 GM/50 ML BAG IVPB (08:55)
--- NOTE | 2021-11-24 10:09 | P.OP_ITS ---
Procedure Note - Detailed Date of Procedure 11/24/21 Pre-op Diagnosis left trimalleolar fx Post-op Diagnosis Same Procedure Performed ORIF left medial malleolus Surgeon Ammon Bowser MD Manufacturing Maintenance Technician Yonatan Hyde Description of Procedure The patient was identified proper site identified. In the preop holding area, Anesthesia performed a left lower extremity block. She was then taken to the operating room and transferred to the OR table placing supine taking care to pad her torso extremities. After general anesthetic induction and intubation, a nonsterile tourniquet was placed high on the left thigh. Left lower extremity was prepped and draped in usual sterile fashion. The ankle fracture was assessed. There was displacement of the medial malleolar fragment but the lateral malleolus was lined up quite well. Syndesmosis was stable to stressing. From the preoperative films is noted that there was a fair bit of comminution at the lateral fracture site. The decision was made to approach the medial side first. The extremity was exsanguinated and tourniquet was inflated to 300 millimeters of mercury remaining up for about 28 minutes. Longitudinal incision was made over the medial malleolus. Subcutaneous tissue was sharply dissected protecting neurovascular structures. Fracture site was identified and cleared of debris. The ankle joint was able to be access medially and it was irrigated removing debris as well. There was some early fracture callus noted. There is also a sizable defect along the medial cortex most apparent when the medial malleolar fragment was reduced. It was provisionally stabilized with two K- wires over which two 4.0 cannulated screw with washers were applied and then the K-wires removed. This gave a nice reduction and stabilization of the medial fragment. Ankle was again assessed. Talus was sitting very nicely in the syndesmosis and the distal fibula was lined up quite well. Decision was made not to address the lateral side because of the satisfactory alignment and also because of the degree of comminution at the fracture site since length and align ment had been restored along with a syndesmosis that was stable. The wound medially was irrigated with sterile saline. Skin edges reapproximated with three 0 V lock and 3-0 nylon. Sterile dressing was applied. A well-padded stirrup type ankle splint was applied. Patient was awakened, extubated taken to recovery in stable condition. She tolerated the procedure well. There were no known intraoperative complications. Estimated blood loss 20 milliliters. She received perioperative antibiotics. Estimated Blood Loss -20.0 Tourniquet Time 28 Pathology None sent Complications No immediate complications Condition Stable Disposition PACU
[2021-11-24] MEDS: oxyCODONE HCL (*CRX) 5 MG TAB IR PO (11:22)
== END 2021-11-24 12:26 | disposition home or self-care (01) ==
PROVIDERS: PCP Internal Medicine; Visit Provider Orthopaedic Surgery
PROC: (CPT 27766; principal; 2021-11-24 12:30)
DX: S82.843A Displaced bimalleolar fracture of unspecified lower leg, initial encounter for closed fracture (principal); G89.18 Other acute postprocedural pain; X58.XXXA Exposure to other specified factors, initial encounter; Z79.82 Long term (current) use of aspirin
CPT/HCPCS: 27766; 64445; 64447; A9270; C1713; C1769; J0690; J1100; J1885; J2250; J2370; J2405; J2704; J3010; J7120

== ENCOUNTER 2022-01-12 12:46 | Outpatient (RCR) | payer MEDICARE, SELFPAY ==
--- NOTE | 2022-01-12 14:24 | PTOPEVAL ---
Thank you for referring Marva Jimenez to [facility].? The patient is scheduled to be seen for therapy? 2x/week for 12 visits. Please review, sign, date and return this plan of care ZOILA. I agree with and certify that the following plan of care is medically necessary. Referring Physician Date Admitting Provider: Attending Provider: Ammon Bowser MD Referring Provider: *PT Outpatient Evaluation Start: 01/12/22 12:59 Freq: Status: Active Protocol: Document 01/12/22 12:59 [facility] (Rec: 01/12/22 14:21 AC [id number]) Therapy Assessment Status Assessment Status Assessment Status Evaluation Outpatient Past Medical History Neurological History Hx Migraine Yes Cardiovascular History Hx Cardiac Disorders No Significant History Respiratory History Hx Respiratory Disorders No Significant History Gastrointestinal History Hx Hemorrhoids Yes Genitourinary History Hx Genitourinary Disorders No Significant History Musculoskeletal History Hx Crutches or Walker Use Yes: USED WALKER IN PAST Query Text:If Yes, Enter Crutches, Walker, or Both in the Comment Hx Other Musculoskeletal Disorders Yes: LT TRIMALLEOLAR FX(CASTED ) & LT HUMERUS FX (SLING)-11/14,PLAN SURG 11/25/21 Hematological History Hx Other Hematological Disorders Yes: ANEMIA IN ER 11/14/21 Endocrine History Hx Endocrine Disorders No Significant History HEENT History Hx Tonsillectomy Yes Hx Sinus Problems Yes: seasonal Integumentary History Hx Shingles Yes Psychosocial History Hx Psychiatric Disorders No Significant History Pain History History of Any Previous or Ongoing No Significant History Instance of Pain Anesthesia History Hx Anesthesia Reactions No Significant History Evaluation Information Problem Onset 11/14/21 Subjective Information Pt reports that she went on a Query Text:As Reported By Patient/ walk and her L foot got stuck Family and the rest of her body went forward. Might have blacked out. After fall, she was lying on her side and noticed her L ankle was out of alignment. Called who came to get her. Went to ER, got xrays. went to align, then did another Xray and then another alignment. she went to [place] by ambulance. They had to do another alignment. Stayed in [place], couldn't
--- NOTE | 2022-02-09 12:07 | PTOPEVAL ---
Thank you for referring Marva Jimenez to [facility].? The patient is scheduled to be seen for therapy? 1-2x/week for remaining 2 visits. Please review, sign, date and return this plan of care ZOILA. I agree with and certify that the following plan of care is medically necessary. Referring Physician Date Admitting Provider: Attending Provider: Ammon Bowser MD Referring Provider: *PT Outpatient Evaluation Start: 01/12/22 12:59 Freq: Status: Active Protocol: Document 02/09/22 10:59 [facility] (Rec: 02/09/22 12:07 [facility] [email or web address]) Therapy Assessment Status Assessment Status Assessment Status Progress Outpatient Past Medical History Neurological History Hx Migraine Yes Cardiovascular History Hx Cardiac Disorders No Significant History Respiratory History Hx Respiratory Disorders No Significant History Gastrointestinal History Hx Hemorrhoids Yes Genitourinary History Hx Genitourinary Disorders No Significant History Musculoskeletal History Hx Crutches or Walker Use Yes: USED WALKER IN PAST Query Text:If Yes, Enter Crutches, Walker, or Both in the Comment Hx Other Musculoskeletal Disorders Yes: LT TRIMALLEOLAR FX(CASTED ) & LT HUMERUS FX (SLING)-11/14,PLAN SURG 11/25/21 Hematological History Hx Other Hematological Disorders Yes: ANEMIA IN ER 11/14/21 Endocrine History Hx Endocrine Disorders No Significant History HEENT History Hx Tonsillectomy Yes Hx Sinus Problems Yes: seasonal Integumentary History Hx Shingles Yes Psychosocial History Hx Psychiatric Disorders No Significant History Pain History History of Any Previous or Ongoing No Significant History Instance of Pain Anesthesia History Hx Anesthesia Reactions No Significant History Evaluation Information Problem Diagnosis L humerus fx, L lower leg fx Onset 11/14/21 Subjective Information Pt is satisfied with her Query Text:As Reported By Patient/ current progress with PT. She Family is happy that she is now walking with her SPC and she feels more confident when walking. She feels like she is living again. She feels that her ankle is a lot better but her shoulder is still having a lot of pain. She has been focusing on her shoulder exercises more recently. She has most pain when reaching overhead and reaching out to
--- NOTE | 2022-02-25 07:18 | BUPTOPEVAL1 ---
Evaluation Information Assessment Status Progress Assessment Status Progress Assessment Status Evaluation Subjective Information Pt. continues to express concern regarding swelling in the right foot. She reports swelling is starting to present into the heel. Pt. has returned to driving. She reports she walks without her cane in the home and has been attempting to walk outside with her cane. She reports that she still notes stiffness in the ankle and states that she would like to be able to walk without an AD. Reported Pain Level Pain Score 2,2: Self Report Assessment PT Clinical Summary Pt. has demosntrated excellent progress toward all goals. She continues to demosntrate impairments in regards to gait and strength. She also continues to present with stiffness at the ankle and shoulder. Continued skilled PT is indicated in order to continue to improve these areas to allow pt. to return to normal community navigation without limitation and wean completely from cane use. PT Clinical Summary Pt presents to physical therapy with significant improvements in pain, strength, gait pattern, and range of motion since initial evaluation. She still demonstrates decreased ROM and strength which leads to an antalgic gait and difficulty when reaching overhead or out to the side. She will benefit from additional skilled PT to further facilitate symptom relief, improve the aforementioned impairments, and return to functional and recreational activities. PT Clinical Summary Pt presents to PT s/p fall with subsequent fracture of the L humerus and ankle on 11/14/21. She has pain and demonstrates decreased strength and decreased mobility. In addition to these impairments, she expresses hesitancy with activity due to fear of re-injury. 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 We discussed her POC going forward and she reported all of her current questions to be answered. She was provided with an HEP focused on improving mobility and light strengthening within her tolerance. Pt will benefit from skilled PT to facilitate symptom relief, decrease risk for falls , improve the aforementioned impairments, and
--- NOTE | 2022-03-18 21:22 | PTOPDC ---
Assessment and note entered by JT File, PT Evaluation Information Assessment Status Discharge Diagnosis L humerus fx, L lower leg fx Onset 11/14/21 Subjective Information patient reports her shoulder and her ankle both feel great this date. she reports she is no longer using a boot or any AD for walking. she reports she is back to full participation in her recreational/community activities. she reports she is ready to DC therapy today.
== END 2022-03-11 08:58 | disposition home or self-care (01) ==
LOC: CHSPT 12:46
PROVIDERS: Visit Provider Orthopaedic Surgery
DX: S42.255D Nondisplaced fracture of greater tuberosity of left humerus, subsequent encounter for fracture with routine healing (principal); S82.843D Displaced bimalleolar fracture of unspecified lower leg, subsequent encounter for closed fracture with routine healing
CPT/HCPCS: 97110; 97116; 97140; 97161; 97530

== ENCOUNTER 2022-05-18 12:46 | Outpatient (CLI) | payer MEDICARE, SELFPAY ==
--- NOTE | ~2022-05-18 | MM_ITS ---
EXAMINATION: MM screening avel BI w tariq HISTORY: Screening mammogram TECHNIQUE: Craniocaudal and mediolateral oblique 3-D tomosynthesis images were obtained and synthetic 2-D images were generated. CAD analysis was submitted and interpreted. COMPARISON: 05/14/2021, 04/11/2020, 04/10/2019 BREAST PARENCHYMAL COMPOSITION: There are scattered areas of fibroglandular density. FINDINGS: Scattered benign-appearing calcifications are present. No suspicious mass, calcification, o r architectural distortion are identified in either breast to suggest malignancy. There has been no s uspicious interval change. IMPRESSION: 1. No mammographic evidence of malignancy. 2. Recommend routine screening mammography in one year. BI-RADS Category 2: Benign finding(s). Reviewed, dictated and finalized at location [facility]. SCREW
== END 2022-05-18 12:47 | disposition home or self-care (01) ==
LOC: CHSIMG 12:48
PROVIDERS: PCP Internal Medicine; Visit Provider Internal Medicine
DX: Z12.31 Encounter for screening mammogram for malignant neoplasm of breast (principal)
CPT/HCPCS: 77063; 77067

== ENCOUNTER 2022-08-13 07:19 | Outpatient (CLI) | payer MEDICARE, SELFPAY ==
[2022-08-13 07:47] LABS: Basophils Absolute Auto 0.03 K/mm3 (0.00-0.10); Basophils Percent Auto 0.5 % (0.0-1.0); Eosinophils Absolute Auto 0.09 K/mm3 (0.02-0.50); Eosinophils Percent Auto 1.5 % (1.0-6.0); Hematocrit 43.5 % (35.0-42.0); Hemoglobin 13.8 g/dL (11.7-13.8); Immature Granulocyte Absolute 0.02 K/mm3 (0.00-0.00); Immature Granulocyte Percent A 0.3 % (0.0-0.0); Lymphocytes Absolute Auto 2.16 K/mm3 (1.10-4.50); Lymphocytes Percent Auto 36.5 % (18.0-42.0); Mean Corpuscular HGB Conc 31.7 g/dL (32.0-36.0); Mean Corpuscular Hemoglobin 28.8 pg (27.0-31.0); Mean Corpuscular Volume 90.8 fL (78.0-102.0); Mean Platelet Volume 9.1 fl (9.2-11.8); Monocytes Absolute Auto 0.37 K/mm3 (0.10-0.90); Monocytes Percent Auto 6.3 % (2.0-11.0); Neutrophils Absolute Auto 3.2 K/mm3 (1.7-7.2); Neutrophils Percent Auto 54.9 % (50.0-70.0); Platelet Count Result 272 K/mm3 (150-420); Red Blood Count 4.79 M/mm3 (4.20-5.40); Red Cell Distribution Width 14.3 % (11.6-14.4); White Blood Count 5.9 K/mm3 (4.8-10.8)
[2022-08-13 08:27] LABS: Alanine Aminotransferase 24 U/L (14-59); Albumin Level 3.9 g/dL (3.4-5.0); Alkaline Phosphatase 102 U/L (46-116); Anion Gap 7 mmol/L (8-16); Aspartate Amino Transferase 18 U/L (15-37); Bilirubin,Total 0.5 mg/dL (0.00-1.00); Blood Urea Nitrogen 12 mg/dL (7-18); Calcium 9.2 mg/dL (8.5-10.1); Carbon Dioxide 31 mmol/L (21-32); Chloride 105 mmol/L (98-108); Cholesterol 205 mg/dL (0-200); Estimated Glomerular Filt Rate > 60; Glucose 96 mg/dL (70-99); HDL Direct 89 mg/dL (40-60); LDL Cholesterol Calculated 103 mg/dL (<130); Osmolality Calculated 295 mOsm/kg (285-295); Potassium 4.6 mmol/L (3.5-5.1); Sodium 143 mmol/L (136-145); Total Protein 7.6 g/dL (6.4-8.2); Triglycerides 65 mg/dL (0-150)
[2022-08-13 11:28] LABS: Appearance Urine Clear (Clear); Bilirubin Urine Negative (Negative); Blood Urine Negative (Negative); Color Urine Light Yellow (Yellow); Glucose Urine UA Negative (Negative); Ketones Urine Negative (Negative); Leukocyte Esterase Ur 2+ LEU/UL (Negative); Nitrate Urine Negative (Negative); Protein Urine Negative (Negative); Urobilinogen Urine 0.2 mg/dL (0.2-1.0); pH Urine 5.5 (5.0-8.0)
[2022-08-13 11:34] LABS: Add Urine Microscopic? YES; Bacteria Urine 2+ /hpf; RBC Urine None seen /hpf (0-2); Squamous Epithelial Cell Urine Few /hpf (Few)
[2022-08-16 19:38] LABS: Vitamin D 25 Hydroxy 50 ng/mL (30-100)
== END 2022-08-13 07:20 | disposition home or self-care (01) ==
LOC: CHSLAB 07:22
PROVIDERS: PCP Internal Medicine; Visit Provider Internal Medicine
DX: M81.0 Age-related osteoporosis without current pathological fracture (principal); E78.2 Mixed hyperlipidemia; N39.0 Urinary tract infection, site not specified
CPT/HCPCS: 36415; 80053; 80061; 81001; 82306; 85025; 87086

== ENCOUNTER 2023-05-07 12:38 | Outpatient (CLI) | payer MEDICARE, SELFPAY ==
[2023-05-07 12:52] LABS: Basophils Absolute Auto 0.02 K/mm3 (0.00-0.10); Basophils Percent Auto 0.3 % (0.0-1.0); Eosinophils Absolute Auto 0.06 K/mm3 (0.02-0.50); Eosinophils Percent Auto 0.9 % (1.0-6.0); Hematocrit 42.3 % (35.0-42.0); Hemoglobin 13.5 g/dL (11.7-13.8); Immature Granulocyte Absolute 0.03 K/mm3 (0.00-0.00); Immature Granulocyte Percent A 0.4 % (0.0-0.0); Lymphocytes Percent Auto 24.3 % (18.0-42.0); Mean Corpuscular HGB Conc 31.9 g/dL (32.0-36.0); Mean Corpuscular Hemoglobin 29.3 pg (27.0-31.0); Mean Platelet Volume 8.8 fl (9.2-11.8); Monocytes Absolute Auto 0.41 K/mm3 (0.10-0.90); Monocytes Percent Auto 5.9 % (2.0-11.0); Neutrophils Absolute Auto 4.8 K/mm3 (1.7-7.2); Neutrophils Percent Auto 68.2 % (50.0-70.0); Platelet Count Result 290 K/mm3 (150-420); Red Cell Distribution Width 13.9 % (11.6-14.4)
[2023-05-07 13:49] LABS: Alanine Aminotransferase 28 U/L (14-59); Alkaline Phosphatase 132 U/L (46-116); Anion Gap 7 mmol/L (8-16); Aspartate Amino Transferase 21 U/L (15-37); Bilirubin,Total 0.4 mg/dL (0.00-1.00); Blood Urea Nitrogen 14 mg/dL (7-18); Calcium 9.4 mg/dL (8.5-10.1); Carbon Dioxide 33 mmol/L (21-32); Chloride 102 mmol/L (98-108); Estimated Glomerular Filt Rate > 60; Ferritin 53 ng/mL (8-252); Free T4 Free Thyroxine 0.93 ng/dL (0.76-1.46); Glucose 90 mg/dL (70-99); Iron 51 ug/dL (50-170); Magnesium 2.3 mg/dL (1.8-2.4); Osmolality Calculated 294 mOsm/kg (285-295); Potassium 4.6 mmol/L (3.5-5.1); Sodium 142 mmol/L (136-145); Thyroid Stimulating Hormone 1.34 uIU/mL (0.36-3.74); Total Protein 7.4 g/dL (6.4-8.2)
== END 2023-05-07 12:39 | disposition home or self-care (01) ==
LOC: CHSLAB 12:40
PROVIDERS: PCP Internal Medicine; Visit Provider Internal Medicine
DX: K59.00 Constipation, unspecified (principal); R19.4 Change in bowel habit; K64.8 Other hemorrhoids; D64.9 Anemia, unspecified
CPT/HCPCS: 36415; 80053; 82728; 83540; 83735; 84439; 84443; 85025

== ENCOUNTER 2023-05-10 13:25 | Outpatient (CLI) | payer MEDICARE, SELFPAY ==
--- NOTE | ~2023-05-10 | CT_ITS ---
EXAMINATION: CT abdomen pelvis w con DATE: 05/10/2023 14:03 INDICATION: Change in bowel habits. Left pelvic pain. TECHNIQUE: Computed tomography (CT) of the abdomen and pelvis was performed with 100 mL Omnipaque 350 intravenous contrast. Automated exposure control and iterative reconstruction technique were employe d. The dose-length product was 225.98 mGy-cm. COMPARISON: None. FINDINGS: The visualized portions of the lung bases demonstrate mild atelectasis. No pleural effusion . The heart size is normal. No pericardial effusion. There is a 5 mm cyst in the liver. The gallbladd er, spleen, pancreas, adrenal glands, and right kidney are normal. There is a 5 mm cyst in left kidne y. There are no dilated loops of bowel. There is an anastomosis in the rectum. The appendix is normal . There are no pathologically enlarged lymph nodes. There is no free intraperitoneal fluid. There is mild thoracic and lumbar spondylosis. IMPRESSION: 1. No specific etiology for the patient's symptoms. Reviewed, dictated and finalized at location E. OM SEAMSTRESS
== END 2023-05-10 13:26 | disposition home or self-care (01) ==
LOC: CHSIMG 13:27
PROVIDERS: PCP Internal Medicine; Visit Provider Internal Medicine
DX: R19.4 Change in bowel habit (principal)
CPT/HCPCS: 74177; Q9967

== ENCOUNTER 2023-05-20 12:15 | Outpatient (CLI) | payer MEDICARE, SELFPAY ==
--- NOTE | ~2023-05-20 | MM_ITS ---
EXAMINATION: MM screening avel BI w tariq HISTORY: Screening mammogram TECHNIQUE: Craniocaudal and mediolateral oblique 3-D tomosynthesis images were obtained and synthetic 2-D images were generated. CAD analysis was submitted and interpreted. COMPARISON: 05/18/2022, 05/14/2021, 04/11/2020 bilateral screening mammogram examinations BREAST PARENCHYMAL COMPOSITION: There are scattered areas of fibroglandular density. FINDINGS: There is no evidence of suspicious mass, calcification, or architectural distortion to sugg est malignancy in either breast. There has been no suspicious interval change. IMPRESSION: 1. No mammographic evidence of malignancy. 2. Recommend routine screening mammography in one year. BI-RADS Category 1: Negative Reviewed, dictated and finalized at location A. NER CAP FRAME
== END 2023-05-20 12:16 | disposition home or self-care (01) ==
LOC: CHSIMG 12:17
PROVIDERS: PCP Internal Medicine; Visit Provider Internal Medicine
DX: Z12.31 Encounter for screening mammogram for malignant neoplasm of breast (principal)
CPT/HCPCS: 77063; 77067

== ENCOUNTER 2023-06-08 13:56 | Outpatient (CLI) | payer MEDICARE, SELFPAY ==
--- NOTE | ~2023-06-08 | US_ITS ---
EXAMINATION: US arterial ankle brachial ind DATE: 06/08/2023 14:25 INDICATION: Lower limb peripheral arterial occlusive disease TECHNIQUE: Segmental pressures and plethysmographic and Doppler waveforms of the brachial and lower e xtremity arteries were obtained. COMPARISON: None. FINDINGS: Right and left brachial artery pressures of 125 mm Hg and 133 mm Hg, respectively, are concordant (no rmal difference <= 30 mmHg). The right ankle-brachial index (GABBIE) is 1.23 (normal >= 0.9-1.0). The right great toe-brachial index (TBI) is 0.59 (normal >= 0.65). Arterial Doppler waveforms are biphasic with brisk systolic upstrokes at with the right posterior tibial artery and monophasic with brisk systolic upstrokes at the dorsal is pedis artery. The left GABBIE is 1.23. The left TBI is 0.33. Arterial Doppler waveforms are biphasic with brisk systol ic upstrokes at both left posterior tibial and dorsalis pedis arteries. IMPRESSION: 1. Arterial occlusive disease to bilateral lower limbs with normal bilateral ABIs but mildly decrease d right and moderately decreased left TBIs. Reviewed, dictated and finalized at location A. GY ENGINEER IMPRESSION: 1. Arterial occlusive disease to bilateral lower limbs with normal bilateral AB Is but mildly decreased right and moderately decreased left TBIs.
== END 2023-06-08 13:57 | disposition home or self-care (01) ==
LOC: CHSIMG 13:58
PROVIDERS: PCP Internal Medicine; Visit Provider Internal Medicine
DX: I73.9 Peripheral vascular disease, unspecified (principal)
CPT/HCPCS: 93922

== ENCOUNTER 2023-07-01 01:25 | Day surgery (SDC) | payer MEDICARE, SELFPAY ==
[2023-06-03 14:08] VITALS: BMI 23.3
--- NOTE | 2023-06-29 11:26 | SUR.PREOP ---
Patient called regarding upcoming procedure. Message left on pt's voicemail regarding appointment times.
[2023-07-01 06:18] VITALS: BP 137/79; PULSE 106; RESP 20; TEMP 36.2; O2SAT 99
[2023-07-01] MEDS: LACTATED RINGERS 1,000 ML 150 ML IV CONT (06:31)
--- NOTE | 2023-07-01 07:28 | P.PNAN_ITS ---
Anes - Initial Pre Proc Eval Procedure: Operation Date: 07/01/23 07:30 Proposed Procedures p Colonoscopy - Pablo George DO Date/Time: 07/01/23 07:28 Surgeon: Pablo George DO Pre Op Diagnosis: change in bowel habits Patient Data Age: 67 Gender: F Height: 1.57 m Weight: 56.9 kg Last Vital Signs Temp 97.2 F L 07/01/23 06:18 Pulse 106 H 07/01/23 06:18 Resp 20 07/01/23 06:18 BP 137/79 07/01/23 06:18 Pulse Ox 99 07/01/23 06:18 O2 Del Method Room Air 07/01/23 06:18 Allergies Allergy/AdvReac Type Severity Reaction Status Date / Time No Known Allergies Allergy Verified 07/01/23 06:15 Home Medications Medication Instructions Recorded Confirmed Type loratadine 10 mg tablet (Claritin) 10 mg PO DAILY 04/08/21 06/03/23 History multivitamin 1 tablet PO DAILY 04/08/21 06/03/23 History rizatriptan 10 mg tablet 10 mg PO PRN PRN Migraine Headache 04/08/21 06/03/23 History vitamin C 50 mg-biotin 1,250 mcg 1 tablet PO DAILY 11/15/21 06/03/23 History chewable tablet (Pzix-Tpgz-Hlpke (vit C-biotin)) cholecalciferol (vitamin D3) 50 50 mcg PO DAILY 11/19/21 06/03/23 History mcg (2,000 unit) capsule Patient hx anesthesia problems: none Family hx anesthesia problems: none Results Review: All pre-operative results and documents have been reviewed as part of the pre- operative evaluation. [facility] Past Medical History Medical History Arthritis Headache Nondisplaced fracture of greater tuberosity of left humerus Surgical History Surgical History Ankle fracture, bimalleolar, closed ORIF November 23, 2021 History of hysterectomy History of tonsillectomy 1999 Internal hemorrhoids without complication some type of stapling procedure Family History Family History Father Lung cancer Mother Diabetes mellitus Emphysema/COPD Hypertension Depression Social History Social History Smoking status: Never smoker Alcohol intake: current Substance use: never Substance use type: does not use Living arrangements: with family Additional living arrangements comments: [facility]USB Occupation/Education: retired Spiritual care concerns: No Anes - Eval Final PreProcedure Day of Procedure 07/01/23 07:28 Patient weight: normal Heart: regular rate and rhythm Lungs: clear to auscultation Airway: Mallampati scale class II Neurological: alert and oriented Last oral intake: >/= 8 hours ASA classification: II Emergent: no Anesthetic plan: proceed Anesthesia type and monitoring: general GIVS and standard monitoring Results Review: All pre-operative results and documents have been reviewed as part of the pre- operative evaluation. Informed Consent: The patient's anesthetic plan and its attendant risks and benefits were d iscussed with the patient/family/POA. Questions were solicited and answers provided to the satisfaction of the patient/family/POA.
--- NOTE | 2023-07-01 07:33 | PM.IMHP ---
H&P: HPI History of Present Illness Date/Time: 07/01/23 07:33 Chief Complaint: Change in bowel habits Narrative: This is a 67-year-old woman who presents for colonoscopy. Her last colonoscopy was 10 years ago. Recently she has had some change in her bowel habits and is having to strain more to have BMs. She denies any hematochezia or melena. She denies any rectal bleeding. She denies any family history of colon cancer. Review of Systems Review of Systems: All systems reviewed & are unremarkable except as noted in HPI and below Constitutional: Constitutional: Denies chills, Denies fever(s), Denies headache(s) and Denies weight loss Eyes: Eyes: Denies change in vision ENT: Denies dizziness, Denies headache(s), Denies neck mass and Denies throat swelling Cardiovascular: Cardiovascular: Denies chest pain, Denies lightheadedness and Denies dyspnea Respiratory: Respiratory: Denies cough, Denies dyspnea and Denies wheezing Gastrointestinal: Gastrointestinal: Denies abdominal pain, Denies change in bowel habits, Denies nausea and Denies vomiting Genitourinary: Genitourinary: Denies hematuria and Denies dysuria Musculoskeletal: Musculoskeletal: Reports as per HPI Integumentary/Breasts: Skin/Breast: Reports as per HPI Neurologic: Denies dizziness and Denies headache(s) Allergic/Immunologic: Allergic/Immunologic: Denies throat swelling and Denies wheezing [facility] Past Medical History Medical History Arthritis Headache Nondisplaced fracture of greater tuberosity of left humerus Surgical History Surgical History Ankle fracture, bimalleolar, closed ORIF November 23, 2021 History of hysterectomy History of tonsillectomy 1998 Internal hemorrhoids without complication some type of stapling procedure Family History Family History Father Lung cancer Mother Diabetes mellitus Emphysema/COPD Hypertension Depression Social History Social History Smoking status: Never smoker Alcohol intake: current Substance use: never Substance use type: does not use Living arrangements: with family Additional living arrangements comments: [facility] Occupation/Education: retired Spiritual care concerns: No Meds Home Medications and Allergies Home Medications Medication Instructions Recorded Confirmed Type loratadine 10 mg tablet (Claritin) 10 mg PO DAILY 04/08/21 06/03/23 History multivitamin 1 tablet PO DAILY 04/08/21 06/03/23 History rizatriptan 10 mg tablet 10 mg PO PRN PRN Migraine Headache 04/08/21 06/03/23 History vitamin C 50 mg-biotin 1,250 mcg 1 tablet PO DAILY 11/15/21 06/03/23 History chewable tablet (Hesn-Bgqf-Mvrcp (vit C-biotin)) cholecalciferol (vitamin D3) 50 50 mcg PO DAILY 11/19/21 06/03/23 History mcg (2,000 unit) capsule Allergies Allergy/AdvReac Type Severity Reaction Status Date / Time No Known Allergies Allergy Verified 07/01/23 06:15 Vital Signs Vital Signs - 24 hr 07/01/23 06:18 Temperature 36.2 C L Pulse Rate 106 H Respiratory Rate 20 Blood Pressure 137/79 Pulse Oximetry 99 Oxygen Delivery Room Air Exam Const: General: no acute distress and alert Orientation/consciousness: patient oriented x3 HENMT: Head: normocephalic and atraumatic Ears: hearing grossly normal bilaterally Face/Nose/Sinus: Normal nares present Mouth: Yes Normal oral and palatal mucosa present Eyes: Periorbital: periorbital findings normal Sclera: sclerae normal EOM: EOMs intact bilaterally Neck: Neck: normal visual inspection, no lymphadenopathy and trachea midline Chest: Chest palpation & inspection: normal inspection of the chest Resp: Effort & Inspection: normal respiratory effort Auscultation: clear to auscultation
[2023-07-01 08:00] VITALS: BP 103/57; PULSE 76; RESP 17; O2SAT 100
[2023-07-01 08:10] VITALS: BP 107/74; PULSE 77; RESP 19; O2SAT 100
[2023-07-01 08:20] VITALS: BP 127/77; PULSE 72; RESP 17; O2SAT 100
== END 2023-07-01 08:38 | disposition home or self-care (01) ==
PROVIDERS: PCP Internal Medicine; Visit Provider Surgery
PROC: 0DJD8ZZ Inspection of Lower Intestinal Tract, Via Natural or Artificial Opening Endoscopic (ICD-10-PCS; CPT 45378; principal; 2023-07-01 07:30)
DX: K59.00 Constipation, unspecified (principal); D12.2 Benign neoplasm of ascending colon; K57.30 Diverticulosis of large intestine without perforation or abscess without bleeding; R51.9 Headache, unspecified; Z80.1 Family history of malignant neoplasm of trachea, bronchus and lung
CPT/HCPCS: 45380; 88305; J2704; J7120

== ENCOUNTER 2023-11-23 11:52 | Outpatient (CLI) | payer MEDICARE, SELFPAY ==
--- NOTE | ~2023-11-23 | DEXA_ITS ---
? Bone Density Report? Name:? ZULEYKA MOY Patient ID:??? [id number] Age:? 68 Sex:? Female Ethnicity:? White Date of : 1955 Indication: postmenopausal; screening for osteoporosis; height loss; prior fracture; hysterectomy; Referring Provider: Ramila Rodriguez Study: Bone densitometry was performed. Exam Date: November 23, 2023 Accession number: [id number] Bone Density: Region? BMD??? T-score? Z-score?? Classification AP Spine(L1-L4)? 0.770?? -2.5? -0.4? Osteoporosis Femoral Neck (Left)? 0.629?? -2.0? -0.2? Osteopenia Total Hip (Left)? 0.768?? -1.4? 0.1? Osteopenia Femoral Neck (Right)? 0.621?? -2.1? -0.3? Osteopenia Total Hip (Right)? 0.765?? -1.5? 0.0? Osteopenia Femoral Neck Mean? 0.625?? -2.0? -0.2? Osteopenia Total Hip Mean? 0.766?? -1.4? 0.1? Osteopenia World Health Organization criteria for BMD impression classify patients as: Normal (T-score at or above -1.0), Osteopenia (T-score between -1.0 and -2.5), or Osteoporosis (T-score at or below -2.5). 10-year Fracture Risk: FRAX not reported because: ? Some T-score for Spine Total or Hip Total or Femoral Neck at or below -2.5 Clinical Information Provided by Patient: Has had a low trauma fracture Has used the following medications: Actonel (i.e. risedronate), Evista (i.e. raloxifene), Fosamax (i.e. alendronate), Vitamin D Has the following medical conditions: Hysterectomy Patient maximum height was 64 Menopause Age: 43 No regular weight bearing exercise Drinks caffeinated beverages Onset of menses at age 9 Number of children 2 Impression: The patient has established osteoporosis, based on the Total Spine T-score and the existence of a prior fracture. The patient has risk factors, including: previous fracture. Discussion: HIGH RISK OF FRACTURE. BONE DENSITY IS UNDESIRABLY LOW AT ONE OR MORE SKELETAL SITES, CONSISTENT WITH POSTMENOPAUSAL OSTEOPOROSIS. This patient's lowest T-score, in a patient who has previously fractured, meets the World Health Organization's (WHO) criteria for severe osteoporosis. In untreated patients, the risk of osteoporotic fracture increases approximately two-fold for each 1.0 SD decrease in T-score.? Low bone density is not the only risk factor for fracture; also consider factors such as patient's age, frailty or poor health, risk of falling, risk of injury, previous osteoporotic fracture, family history of osteoporosis, cigarette smoking, low body weight, etc.? Not everyone with low bone mineral density has osteoporosis; osteomalacia and other metabolic bone disorders should also be considered. Patients who have osteoporosis should be evaluated for specific diseases and con
== END 2023-11-23 11:53 | disposition home or self-care (01) ==
LOC: CHSIMG 11:54
PROVIDERS: PCP Internal Medicine; Visit Provider Internal Medicine
DX: Z78.0 Asymptomatic menopausal state (principal); M81.0 Age-related osteoporosis without current pathological fracture; M85.89 Other specified disorders of bone density and structure, multiple sites
CPT/HCPCS: 77080

== ENCOUNTER 2024-02-22 14:49 | Outpatient (CLI) | payer MEDICARE, SELFPAY ==
--- NOTE | ~2024-02-22 | XR_ITS ---
EXAMINATION: XR hand RT min 3V DATE: 02/22/2024 15:09 INDICATION: Right hand injury and pain. TECHNIQUE: 3 views of right hand were obtained. COMPARISON: None. FINDINGS: Alignment is normal. No fracture. There is moderate osteoarthritis of second and third dist al interphalangeal joints and mild osteoarthritis of some of the other interphalangeal joints. IMPRESSION: 1. Polyarticular osteoarthritis. Reviewed, dictated and finalized at location A.
== END 2024-02-22 14:50 | disposition home or self-care (01) ==
PROVIDERS: PCP Internal Medicine; Visit Provider Nurse Practitioner Family
DX: S69.91XA Unspecified injury of right wrist, hand and finger(s), initial encounter (principal); M19.041 Primary osteoarthritis, right hand
CPT/HCPCS: 73130

== ENCOUNTER 2024-05-23 08:18 | Outpatient (CLI) | payer MEDICARE, SELFPAY ==
--- NOTE | ~2024-05-23 | MM_ITS ---
EXAMINATION: MM screening avel BI w tariq HISTORY: Screening TECHNIQUE: Craniocaudal and mediolateral oblique 3-D tomosynthesis images were obtained and synthetic 2-D images were generated. CAD analysis was submitted and interpreted. COMPARISON: Comparison to multiple prior studies sequentially, with oldest reviewed study dated 03/21. BREAST PARENCHYMAL COMPOSITION: Not dense: There are scattered areas of fibroglandular density. FINDINGS: There is no evidence of suspicious mass, calcification, or architectural distortion to sugg est malignancy in either breast. There has been no suspicious interval change. IMPRESSION: 1. No mammographic evidence of malignancy. 2. Recommend routine screening mammography in one year. BI-RADS Category 1: Negative Reviewed, dictated and finalized at location B. 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
== END 2024-05-23 08:19 | disposition home or self-care (01) ==
LOC: CHSIMG 08:20
PROVIDERS: PCP Internal Medicine; Visit Provider Internal Medicine
DX: Z12.31 Encounter for screening mammogram for malignant neoplasm of breast (principal)
CPT/HCPCS: 77063; 77067

== ENCOUNTER 2024-08-01 08:17 | Outpatient (CLI) | payer MEDICARE, SELFPAY ==
--- OUTSIDE RECORDS SUMMARY | 2024-08-01 08:47 | XMS_ITS | Clinical Summary ---
Author Organization [facility] Address [address] [place] [address] Care Team Providers Care Learning Consultant Name Role Phone Unavailable Primary Care Provider Unavailabl e Social History Tobacco Use Types Packs/Day Years Used Date Smoking Tobacco: Never Assessed Comments Unknown Sex and Gender Information Value Date Recorded Sex Assigned at Not on file Legal Sex Female 7:03 PM CDT Gender Identity Not on file Sexual Orientation Not on file Last Filed Vital Signs Vital Sign Reading Time Taken Comments Blood Pressure 134/86 06/16/2012 10:55 AM FORKLIFT TRUCK MECHANIC Pulse 72 06/16/2012 10:55 AM FORKLIFT TRUCK MECHANIC Temperature - - Respiratory Rate - - Oxygen Saturation - - Inhaled Oxygen Concentration - - Weight 61.2 kg (135 lb) 06/16/2012 10:55 AM FORKLIFT TRUCK MECHANIC Height 160 cm (5' 3 ) 06/16/2012 10:55 AM FORKLIFT TRUCK MECHANIC Body Mass Index 23.91 06/16/2012 10:55 AM FORKLIFT TRUCK MECHANIC Plan of Treatment Health Maintenance Due Date Last Done Comments Colorectal Cancer Screening Colonoscopy (10 Years) 1955 Hepatitis C 11/04/1971 DTaP, Tdap and Td Vaccines ( 1 - Tdap) 1972 Mammogram Screening 1993 Zoster Vaccines (1 of 2) 11/04/2003 Dexa Scan (General) 2018 Pneumococcal Vaccine: 65+ Ye ars (1 of 1 - PCV) 2018 COVID-19 Vaccine ( - 2023-2 5 season) 2024 Influenza Adult (#1) 2024 RSV Immunization or 60+ Years (1 - 1-dose 75+ series) 2028 Meningococcal B Vaccine Aged Out No l onger eligible based on patient's age to complete this topic Meningococcal Vaccine Aged Out No mague halima eligible based on patient's age to complete this topic RSV Immunizations Under 20 Months Aged Out No longer eligible based on patient's age to complete this topic
--- OUTSIDE RECORDS SUMMARY | 2024-08-01 08:47 | XMS_ITS ---
Author Organization [facility] Address [address] [place], [place] [id number] Care Team Providers Care Cigarette Packing Machine Operator Name Role Phone CHAU JOSÉ Unavailable [phone] Ramila Rodriguez Unavailable Unavailable HAZEL DARBY Unavailable [phone] Allergies Allergen (clinical drug ingredient) Drug/Non Drug Allergy documented on EMR Reaction Allergy Type Onset Date Status Substance with penicillin structure and antibacterial mechanism of action (substance) Penicillins Unknown Drug Allergy 10/15/2013 active REASON FOR VISIT inj Medications Medication SIG (Take, Route, Frequency, Duration) Notes Start Date End Date Status aspirin 81 MG Effervescent Oral Tablet ORAL aspirin 81 MG Effervescent Oral TabletOriginal Medicationaspirin 81 MG Effervescent Oral Tablet *Reorder from threadsy for eRx and Interaction Alerts* 10/15/2013 Active Ascorbic Acid 1000 MG Oral Tablet ORAL ascorbic acid 1000 MG Oral TabletOriginal Medicationascorbic acid 1000 MG Oral Tablet *Reorder from threadsy for eRx and Interaction Alerts* 10/15/2013 Active clotrimazole 10 MG/ML Topical Solution CUTANEOUS clotrimazole 10 MG/ML Topical SolutionOriginal Medicationclotrimazole 10 MG/ML Topical Solution *Reorder from threadsy for eRx and Interaction Alerts* 10/27/2013 Active Vital Signs Height 63.00 in 01/20/2024 Weight 130 lbs 01/20/2024 BMI 23.03 kg/m2 01/20/2024 Height-cm 160.02 cm 01/20/2024 Weight-kg 58.97 kg 01/20/2024 Encounters Encounter Location Date Provider Diagnosis [facility] [place] [address], [place] [id number] 01/20/2024 HAZEL DARBY Plantar fascial fibromatosis M72.2 ; Short Achilles tendon (acquired), 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 I educated the patient on icing and stretching, supportive shoegear, and the use of orthotic devices. Following skin prep, a total of 3 ccs of a 1.5-1-0.5 mix of 1% lidocaine plain, dexamethasone sodium phosphate and kenalog was injected into the patients right plantar fascia. 01/20/2024 Short Achilles tendon (acquired), right ankle (ICD-10 - M67.01) Eduated patient on etiology and possible sequelae of equinus deformity. Encouraged patient to begin with calf and achilles tendon stretching exercise regimen to help accomodate for high plantar peak pressures and manage tightness. 01/20/2024 Localized edema (ICD-10 - R60.0) 01/20/2024 Pain in right foot (ICD-10 - M79.671) Plan Of Treatment Treatment Notes Assessment Notes Plantar fascial fibromatosis I discussed anti-inflammatory treatment options and various means of pronation control with the patient. I educated the patient on icing and stretching, supportive shoegear, and the use of orthotic devices. Following skin prep, a total of 3 ccs of a 1.5-1-0.5 mix of 1% lidocaine plain, dexamethasone sodium phosphate and kenalog was injected into the patients right plantar fascia. Short Achilles tendon (acqui red), right ankle Eduated patient on etiology and possible sequelae of equinus deformity. Encouraged patient to begin with calf and achilles tendon stretching exercise regimen to help accomodate for high plantar peak pressures and manage tightness. Next Appt Details Follow Up: prn, Reason: Progress Notes * ZULEYKA MOY:[birth year] (68 yo F)Acc No.[id number]:01/20/2024 Patient: ZULEYKA CASTRO Provider: Janey DARBY :1955 A ge:68 Y S ex:Female Date:01/20/2024 Address:[address] [place] [address] Subjective: * Chief Complaints: * 1 . Inj. * HPI: H PI: New Complaint E stablished patient presents with a new complaint. P atient complains of an issue to right foot Plantar Fasciitis pain. Patient has been treated for this in the past and is requesting an injection. Duration of problem is one month. P atient denies any injury. M A:SS. * ROS: G eneral / Constitutional: Patient denies w eakness. R espiratory: Patient denies c hronic cough, shortness of breath, sputum production. C ardiovascular: Patient denies c hest pain, history of OR, irregular heartbeat. M usculoskeletal: Patient complains of j oint stiffness, arch pain, flat feet/ planus. P eripheral Vascular: Patient denies b lanching of skin, cold extremities, decreased sensation in extremities. S kin: Patient denies f ungal nails, itching. N eurologic: Patient denies d izziness, gait abnormality, headache. * Medical History: * Family History: F ather: PRN - Father: :: Cancer,,known absent , :: Diabetes,,known absent . M other: PRN - Mother: :: Hypertension,,known absent . * Social History: M igrated Social History: M igrated Social History: Alcohol intake : , History of tobacco use : , Smoking Status : Never smoked. * Medications: T aking Ascorbic Acid 1000 MG Oral Tablet ORAL , Notes to Pharmacist: ascorbic acid 1000 MG Oral TabletOriginal Medicationascorbic acid 1000 MG Oral Tablet *Reorder from [employer] for eRx and Interaction Alerts*, Taking aspirin 81 MG Effervescent Oral Tablet ORAL , Notes to Pharmacist: aspirin 81 MG Effervescent Oral TabletOriginal Medicationaspirin 81 MG Effervescent Oral Tablet *[facility] and [facility]*, Taking clotrimazole 10 MG/ML Topical Solution CUTANEOUS , Notes to Pharmacist: clotrimazole 10 MG/ML Topical SolutionOriginal Medicationclotrimazole 10 MG/ML Topical Solution *Reorder from threadsy for eRx and Interaction Alerts* * Allergies: P enicillins: Allergy - Onset Date 10/15/2013. Objective: * Vitals: W t:130lbs, Wt-k.97 kg, Ht: 63.00 in, Ht-cm: 160.02 cm, BMI:23.03Index, Body Surface Area: 1.62. * Examination: P hysical Examination: V ascular: Dorsalis Pedis pulse noted at 2/4 right foot and 2/4 left foot and Posterior Tibial pulse noted at 2/4 right foot and 2/4 left foot, Capillary refill times noted to be less than three seconds x ten, Temperature gradient noted to be warm to cool to bilateral foot, pedal hair present to bilateral foot and no varicosities are noted Dermatologic: there are no open lesions, no signs of active clinical infection, no erythema noted, no ecchymoses, nails are at hygienic length during todays visit, interdigital spaces clean dry and intact Neurology: protective sensation intact to light touch bilateral digits one through five, vibratory sensation intact to first metatarsophalangeal joint bilaterally Musculoskeletal: pain to palpation medial calcaneal tubercle bilateral foot, pain along medial band of plantar fascia bilateral foot, ankle joint range of motion 0 degree with knee extended bilateral side, arch height 2/5 NWB bilateral 1/5 WB, no calf pain noted b/l, too many toes signs noted on weight bearing exam. Assessment: * Assessment: 1. P lantar fascial fibromatosis - M72.2 (Primary) 2 . S hort Achilles tendon (acquired), right ankle - M67.01 3 . L ocalized edema - R60.0 4 . P ain in right foot - M79.671 Plan: * Treatment: 2. S hort Achilles tendon (acquired), right ankle Notes: Eduated patient on etiology and possible sequelae of equinus deformity. Encouraged patient to begin with calf and achilles tendon stretching exercise regimen to help accomodate for high plantar peak pressures and manage tightness. * Procedure Codes: 2 0550 INJ TENDON SHEATH/LIGAMENT, Modifiers: RT * Follow Up: p rn * Billing Information: * Visit Code: 88994 Office Visit, Est Pt., Level 3. Modifiers: 25 * Procedure Codes: 50847 INJ TENDON SHEATH/LIGAMENT. 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 Patient has been treated for this in the past and is requesting an injection. Duration of problem is one month. Patient denies any injury. MA:SS Examination Category Sub-Category Detail Notes Category Not es Physical Examination Vascular: Dorsalis Pedis pulse noted at 2/4 right foot and 2/4 left foot and Posterior Tibial pulse noted at 2/4 right foot and 2/4 left foot, Capillary refill times noted to be less than three seconds x ten, Temperature gradient noted to be warm to cool to bilateral foot, pedal hair present to bilateral foot and no varicosities are noted Dermatologic: there are no open lesions, no signs of active clinical infection, no erythema noted, no ecchymoses, nails are at hygienic length during todays visit, interdigital spaces clean dry and intact Neurology: protective sensation intact to light touch bilateral digits one through five, vibratory sensation intact to first metatarsophalangeal joint bilaterally Musculoskeletal: pain to palpation medial calcaneal tubercle bilateral foot, pain along medial band of plantar fascia bilateral foot, ankle joint range of motion 0 degree with knee extended bilateral side, arch height 2/5 NWB bilateral 1/5 WB, no calf pain noted b/l, too many toes signs noted on weight bearing exam
--- OUTSIDE RECORDS SUMMARY | 2024-08-01 08:47 | XMS_ITS | Referral Summary ---
Author Organization [facility] [address] Address [address] [place] [address] Care Team Providers Care Glaciologist Name Role Phone Ramila Rodriguez MD Primary Care Provider [phone] Allergies No known active allergies Medications raloxifene (EVISTA) 60 mg tablet take 1 tablet by oral route every day 0 0 11/01/2014 Active ofloxacin (FLOXIN) 0.3 % otic solution 04/27/2022 Activ e loratadine (CLARITIN) 10 mg tablet Take 1 tablet (10 mg total) by mouth daily Active Active Problems Problem Noted Date Diagnosed Date Sensorineural hearing loss (SNHL) of both ears 1 07/05/2021 Impacted cerumen of right ear 05/05/2022 Social History Tobacco Use Types Packs/Day Years Used Date Smoking Tobacco: Never Smokeless Tobacco: Never Tobacco Cessation:Counseling Given: Not Answered Alcohol Use Standard Drinks/Week Comments Yes 0 (1 standard drink = 0.6 oz pur e alcohol) Comments Unknown Sex and Gender Information Value Date Recorded Sex Assigned at Not on file Legal Sex Female 6:45 PM HAND STRIPER Gender Identity Not on file Sexual Orientation Not on file Last Filed Vital Signs Vital Sign Reading Time Taken Comments Blood Pressure 134/89 11/02/2017 9:25 AM CDT Pulse 80 11/02/2017 9:25 AM CDT Temperature - - Respiratory Rate 18 05/05/2022 2:59 PM HAND STRIPER Oxygen Saturation - - Inhaled Oxygen Concentration - - Weight 57.6 kg (127 lb) 05/05/2022 2:59 PM HAND STRIPER Height 160 cm (5' 3 ) 05/05/2022 2:59 PM HAND STRIPER Body Mass Index 22.5 05/05/2022 2:59 PM HAND STRIPER Plan of Treatment Not on file Insurance [employer] Care Teams Glaciologist Relationship Specialty Start Date End Date Ramila Rodriguez MD [address] [place] [address] PCP - General 10/07/15
--- OUTSIDE RECORDS SUMMARY | 2024-08-01 08:47 | XMS_ITS | Clinical Summary ---
Author Organization [facility] [address] Address [address] [place] [address] Care Team Providers Care Farmworker [employer] Name Role Phone Ramila Rodriguez MD Primary Care Provider [phone] Allergies No known active allergies Medications raloxifene [...] 07/05/2021 Impacted cerumen of right ear 05/05/2022 Surgical History Surgery Date Site/Laterality Comments TOTAL ABDOMINAL HYSTERECTOMY Hysterectomy, total TONSILLECTOMY Tonsillectomy OTHER SURGICAL HISTORY Hemorrhoidectomy 11/07 [place] TONSILLECTOM[place] PRIMARY/SEC ONDARY <AGE 10 Tonsillectomy - (Added by Conv) [place] HEMORRHOIDECTOMY INTERNAL [employer]BBER [employer] LIGATIONS Hemorrhoidectomy - (Added by Conv) Medical History Medical History Date Comments Osteoarthritis Osteoarthritis Allergic rhinitis Family History Medical History Relation Name Comments Cancer Father Family history of malignant neoplasm - (Added by Conv) Diabetes Father Family history of diabetes mellitus - (Added by TW Conv) Heart disease Father Family history of cardiac disorder - (Added by TW Conv) Lung cancer Father Cancer, lung; COPD Mother COPD; Cancer Mother Family history of malignant neoplasm - (Added by TW Conv) Diabetes Mother Family history of diabetes mellitus - (Added by TW Conv) Emphysema Mother Emphysema; Heart disease Mother Family history of cardiac disorder - (Added by TW Conv) Hypertension Mother Hypertension; Relation Name Status Comments Father Mother Social History Tobacco Use Types Packs/Day Years Used Date Smoking Tobacco: Never Smokeless Tobacco: Never Tobacco Cessation:Counseling Given: Not Answered Alcohol Use Standard Drinks/Week Comments Yes 0 (1 standard drink = 0.6 oz pur e alcohol) Comments Unknown Sex and Gender Information Value Date Recorded Sex Assigned at Not on file Legal Sex Female 6:45 PM ZIPPER CUTTER Gender Identity Not on file Sexual Orientation Not on file Obstetrics History Last Filed Vital Signs Vital Sign Reading Time Taken Comments Blood Pressure 134/89 11/02/2017 9:25 AM CDT Pulse 80 11/02/2017 9:25 AM CDT Temperature - - Respiratory Rate 18 05/05/2022 2:59 PM ZIPPER CUTTER Oxygen Saturation - - Inhaled Oxygen Concentration - - Weight 57.6 kg (127 lb) 05/05/2022 2:59 PM ZIPPER CUTTER Height 160 cm (5' 3 ) 05/05/2022 2:59 PM ZIPPER CUTTER Body Mass Index 22.5 05/05/2022 2:59 PM ZIPPER CUTTER Plan of Treatment Health Maintenance Due Date Last Done Comments Breast Cancer Screening-Mammogram 1955 Colon Cancer Screening-Colonoscopy 1955 Depression Screening 1955 Fall Risk Assessment 1955 Hepatitis C Screening 1955 Osteoporosis Screening-Bone Density Scan 1955 Hepatitis B Screening 11/04/1971 Well Visit 65+ 2018 Covid-19 Vaccine (5 - 2023-2 5 season) 2024 03/22/2022, 04/02/2021, 08/23/2020, Additional history exists Influenza Vaccine (#1) 2024 , 03/17/2021, 03/02/2018, Additional history exists DTaP/Tdap/Td Vaccine (2 - Td or Tdap) 07/30/2024 07/30/2014 Pneumococcal vaccine 65+ Completed 07/21/2019, 09/2015 Zoster Vaccine Completed 11/10/2021, 08/19, 07/30/2014 Insurance [employer] Care Teams Farmworker [employer] Relationship Specialty Start Date End Date Ramila Rodriguez MD [address] [place] [address] PCP - General 10/07/15
--- OUTSIDE RECORDS SUMMARY | 2024-08-01 08:47 | XMS_ITS | Patient Health Record ---
Author Organization [facility] Address [address] [place], [place] [id number] Care Team Providers Care First Grade Teacher Name Role Phone CHAU JOSÉ Unavailable [phone] Ramila Rodriguez Unavailable Unavailable HAZEL DARBY Unavailable [phone] Allergies Allergen (clinical drug ingredient) Drug/Non Drug Allergy documented on EMR Reaction Allergy Type Onset Date Status Substance with penicillin structure and antibacterial mechanism of action (substance) Penicillins Unknown Drug Allergy 10/15/2013 active Reason For Referral No Information Medications Medication SIG (Take, Route, Frequency, Duration) Notes Start Date End Date Status aspirin 81 MG Effervescent Oral Tablet ORAL aspirin 81 MG Effervescent Oral TabletOriginal Medicationaspirin 81 MG Effervescent Oral Tablet *Reorder from [employer] for eRx and Interaction Alerts* 10/15/2013 Active Ascorbic Acid 1000 MG Oral Tablet ORAL ascorbic acid 1000 MG Oral TabletOriginal Medicationascorbic acid 1000 MG Oral Tablet *Reorder from [employer] for eRx and Interaction Alerts* 10/15/2013 Active clotrimazole 10 MG/ML Topical Solution CUTANEOUS clotrimazole 10 MG/ML Topical SolutionOriginal Medicationclotrimazole 10 MG/ML Topical Solution *Reorder from [employer] for eRx and Interaction Alerts* 10/27/2013 Active Immunizations Vaccine Route Administration Date Status Comme nts Influenza, high dose seasonal Unknown 04/05/2023 Admini stered Vital Signs Height-cm 160.02 cm 01/20/2024 Weight-kg 58.97 kg 01/20/2024 Height 63.00 in 01/20/2024 Weight 130 lbs 01/20/2024 BMI 23.03 kg/m2 01/20/2024 Encounters Encounter Location Date Provider Diagnosis [address] [id number] 09/02/2023 HAZEL DARBY Plantar fascial fibromatosis M72.2 ; Short Achilles tendon (acquired), 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 Encouraged patient to begin with calf and achilles tendon stretching exercise regimen to help accomodate for high plantar peak pressures and manage tightness. 09/02/2023 Plantar fascial fibromatosis (ICD-10 - M72.2) I [...] plantar peak pressures and manage tightness. 01/20/2024 Plantar fascial fibromatosis (ICD-10 - M72.2) [...] injected into the patients right plantar fascia. 09/02/2023 Localized edema (ICD-10 - R60.0) 01/20/2024 Localized edema (ICD-10 - R60.0) 09/02/2023 Pain in right foot (ICD-10 - M79.671) 01/20/2024 Pain in right foot (ICD-10 - M79.671) Plan Of Treatment No Information Insurance Providers Payer Name Payer Address Payer Phone Subscriber Number Group Number Insured Name Patient Relationship to Insured Coverage Start Date Coverage End Date [employer] [address] KIERA CHACON [phone] [id number] ZULEYKA MOY Self - patient is the insured
--- OUTSIDE RECORDS SUMMARY | 2024-08-01 08:47 | XMS_ITS ---
Author Organization [facility] Address [address] [place], [place] [id number] Care Team Providers Care Agricultural Economics Professor Name Role Phone CHAU JOSÉ Unavailable [phone] Ramila Rodriguez Unavailable Unavailable HAZEL DARBY Unavailable [phone] Allergies Allergen (clinical drug ingredient) Drug/Non Drug Allergy documented on EMR Reaction Allergy Type Onset Date Status Substance with penicillin structure and antibacterial mechanism of action (substance) Penicillins Unknown Drug Allergy 10/15/2013 active REASON FOR VISIT R ft injection Medications Medication SIG (Take, Route, Frequency, Duration) Notes Start Date End Date Status aspirin 81 MG Effervescent Oral Tablet ORAL aspirin 81 MG Effervescent Oral TabletOriginal Medicationaspirin 81 MG Effervescent Oral Tablet *Reorder from [employer] for eRx and Interaction Alerts* 10/15/2013 Active clotrimazole 10 MG/ML Topical Solution CUTANEOUS clotrimazole 10 MG/ML Topical SolutionOriginal Medicationclotrimazole 10 MG/ML Topical Solution *Reorder from [employer] for eRx and Interaction Alerts* 10/27/2013 Active Ascorbic Acid 1000 MG Oral Tablet ORAL ascorbic acid 1000 MG Oral TabletOriginal Medicationascorbic acid 1000 MG Oral Tablet *Reorder from [employer] for eRx and Interaction Alerts* 10/15/2013 Active Vital Signs Height 63.00 in 09/02/2023 Weight 130 lbs 09/02/2023 BMI 23.03 kg/m2 09/02/2023 Height-cm 160.02 cm 09/02/2023 Weight-kg 58.97 kg 09/02/2023 Encounters Encounter Location Date Provider Diagnosis [place] [address] [place], [place] [id number] 09/02/2023 HAZEL DARBY Plantar fascial fibromatosis M72.2 ; Short Achilles tendon (acquired), 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 09/02/2023 Short Achilles tendon (acquired), right ankle (ICD-10 - M67.01) Eduated patient on etiology and possible sequelae of equinus deformity. Encouraged patient to begin with calf and achilles tendon stretching exercise regimen to help accomodate for high plantar peak pressures and manage tightness. 09/02/2023 Localized edema (ICD-10 - R60.0) 09/02/2023 Pain [...] manage tightness. Next Appt Details Follow Up: 2 Weeks, Reason: Progress Notes * ZULEYKA MOYB:[birth year] (67 yo F)Acc No.[id number]:09/02/2023 Patient: ZULEYKA CASTRO Provider: Janey DARBY :1955 A ge:67 Y S ex:Female Date:09/02/2023 Address:[address] [place] [address] Subjective: * Chief Complaints: * 1 . R ft injection. * HPI: H PI: Follow Up Visit P atient presents for follow up visit for heel injection,right., Patient states she is doing her stretching exercises, wearing her orthotics, avoiding walking bare foot. States some pain has resolved however still soreness remains to the heel at the end of a long day. Denies any recent trauma to the foot or ankle.. * ROS: G eneral / Constitutional: Patient denies w eakness. R espiratory: Patient denies c hronic cough, shortness of breath, sputum production. C ardiovascular: Patient denies c hest pain, history of VA, irregular heartbeat. M usculoskeletal: Patient complains of j oint stiffness, arch pain, flat feet/ planus. P eripheral Vascular: Patient denies b lanching of skin, cold extremities, decreased sensation in extremities. S kin: Patient denies f ungal nails, itching. N eurologic: Patient denies d izziness, gait abnormality, headache. * Medical History: * Medications: T aking Ascorbic Acid 1000 MG Oral Tablet ORAL , Notes to Pharmacist: ascorbic acid 1000 MG Oral TabletOriginal Medicationascorbic acid 1000 MG Oral Tablet *Reorder from [employer] for eRx and Interaction Alerts*, Taking aspirin 81 MG Effervescent Oral Tablet ORAL , Notes to Pharmacist: aspirin 81 MG Effervescent Oral TabletOriginal Medicationaspirin 81 MG Effervescent Oral Tablet *Reorder from [employer] for eRx and Interaction Alerts*, Taking clotrimazole 10 MG/ML Topical Solution CUTANEOUS , Notes to Pharmacist: clotrimazole 10 MG/ML Topical SolutionOriginal Medicationclotrimazole 10 MG/ML Topical Solution *Reorder from [employer] for eRx and Interaction Alerts* * Allergies: [...] TENDON SHEATH/LIGAMENT, Modifiers: RT * Follow Up: 2 Weeks * Billing Information: * Visit Code: 30807 Office Visit, Est Pt., Level 3. Modifiers: 25 * Procedure Codes: 98547 INJ TENDON SHEATH/LIGAMENT. 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 States some pain has resolved however still soreness remains to the heel at the end of a long day. Denies any recent trauma to the foot or ankle. Examination Category Sub-Category Detail Notes Category Not [...]
--- OUTSIDE RECORDS SUMMARY | 2024-08-01 08:47 | XMS_ITS ---
Author Organization [facility] Address [address] [place], [place] [phone] Care Team Providers Care Health Advocate Name Role Phone CHAU JOSÉ Unavailable [phone] Ramila Rodriguez Unavailable Unavailable HAZEL DARBY Unavailable [phone] REASON FOR VISIT CHECK Encounters Encounter Location Date Provider Diagnosis [facility] [address] [place], [place] [phone] 05/20/2023 HAZEL DARBY Plan Of Treatment No Information Progress Notes * ZULEYKA MOYDOB:[birth year] (68 yo F)Acc No.[id number]:05/20/2023 Patient: Roshan BROOKS ZULEYKA Bhatia Provider: Janey DARBY :1955 A ge:67 Y S ex:Female Date:05/20/2023 Address:[address] [place], [place] [id number] Subjective: * Chief Complaints: * 1 . CHECK. * Medical History: Objective: * Vitals: Assessment: Plan: * Treatment: * Billing Information: * Visit Code: * Procedure Codes: * Electronic signature of BROOKE DARBY DPM on 08/01/2024 at 08:47 AM TELEPHONE COLLECTOR Sign off status: Pending * Provider: Janey DARBY Date: 1 07/20/2022 Generated for Kevin de anda/Ellie/Kylahitting on: 0 08/01/2024 08:47 AM TELEPHONE COLLECTOR
[2024-08-01 08:48] LABS: Hematocrit 44.1 % (35.0-42.0); Hemoglobin 13.8 g/dL (11.7-13.8); Mean Corpuscular HGB Conc 31.3 g/dL (32-36); Mean Corpuscular Hemoglobin 28.1 pg (27.0-31.0); Mean Corpuscular Volume 89.8 fL (78.0-102.0); Platelet Count Result 335 K/mm3 (150-420); Red Blood Count 4.91 M/mm3 (4.20-5.40); Red Cell Distribution Width 13.9 % (11.6-14.4); White Blood Count 5.6 K/mm3 (4.8-10.8)
[2024-08-01 08:50] LABS: Add Urine Microscopic? YES; Appearance Urine Clear (Clear); Bilirubin Urine Negative (Negative); Blood Urine Trace-intact (Negative); Color Urine Light Yellow (Yellow); Glucose Urine UA Negative (Negative); Ketones Urine Negative (Negative); Leukocyte Esterase Ur Trace LEU/UL (Negative); Nitrate Urine Negative (Negative); Protein Urine Negative (Negative); Urobilinogen Urine 0.2 mg/dL (0.2-1.0)
[2024-08-01 08:57] LABS: Bacteria Urine Trace /hpf; RBC Urine 0-2 /hpf (0-2); Squamous Epithelial Cell Urine Few /hpf (Few); WBC Urine 0-3 /hpf (0-3)
[2024-08-01 09:31] LABS: Alanine Aminotransferase 27 U/L (14-59); Albumin Level 4.4 g/dL (3.4-5.0); Alkaline Phosphatase 101 U/L (46-116); Anion Gap 7 mmol/L (4-12); Aspartate Amino Transferase 17 U/L (15-37); Bilirubin,Total 0.6 mg/dL (0.00-1.00); Blood Urea Nitrogen 14 mg/dL (7-18); Calcium 9.8 mg/dL (8.5-10.1); Carbon Dioxide 32 mmol/L (21-32); Chloride 103 mmol/L (98-108); Cholesterol 241 mg/dL (0-200); Estimated Glomerular Filt Rate 60; Glucose 100 mg/dL (70-99); HDL Direct 94 mg/dL (40-60); LDL Cholesterol Calculated 130 mg/dL (<130); Osmolality Calculated 294 mOsm/kg (285-295); Potassium 4.5 mmol/L (3.5-5.1); Sodium 142 mmol/L (136-145); Total Protein 7.7 g/dL (6.4-8.2); Triglycerides 87 mg/dL (0-150)
[2024-08-02 09:38] LABS: Vitamin D 25 Hydroxy 52 ng/mL (30-100)
== END 2024-08-01 08:18 | disposition home or self-care (01) ==
LOC: CHSLAB 08:19
PROVIDERS: PCP Internal Medicine; Visit Provider Internal Medicine
DX: M81.0 Age-related osteoporosis without current pathological fracture (principal); E78.2 Mixed hyperlipidemia; N39.0 Urinary tract infection, site not specified
CPT/HCPCS: 36415; 80053; 80061; 81001; 82306; 85027

== ENCOUNTER 2025-05-30 08:56 | Outpatient (CLI) | payer MEDICARE, SELFPAY ==
--- NOTE | ~2025-05-30 | MM_ITS ---
EXAMINATION: MM screening avel BI w tariq HISTORY: Screening. TECHNIQUE: Craniocaudal and mediolateral oblique 3-D tomosynthesis images were obtained and synthetic 2-D images were generated. CAD analysis was submitted and interpreted. COMPARISON: 2023, 2022, and 2021. BREAST PARENCHYMAL COMPOSITION: Not Dense: There are scattered areas of fibroglandular FINDINGS: There is a biopsy marker on the left. No suspicious masses are seen. There are no suspicious calcifications. No unexplained architectural distortion is seen. There are no skin or nipple abnormalities identified. There is no adenopathy seen on the images submitted. IMPRESSION: No mammographic evidence to suggest malignancy is seen. The patient may return to screening mammography as per ACR guidelines. BI-RADS 1 - Negative. Reviewed, dictated and finalized at location C. TAT MANAGEMENT COORDINATOR
== END 2025-05-30 08:57 | disposition home or self-care (01) ==
LOC: CHSIMG 08:57
PROVIDERS: PCP Internal Medicine; Visit Provider Internal Medicine
DX: Z12.31 Encounter for screening mammogram for malignant neoplasm of breast (principal)
CPT/HCPCS: 77063; 77067